=== PATIENT | female | born 1970 | race African-American/Black ===

== ENCOUNTER 2016-12-19 08:57 | Outpatient (RCR) | payer BC, OTHER ==
--- OUTSIDE RECORDS SUMMARY | 2016-10-02 11:36 | XMS REPORT | Continuity of Care Document ---
Author Author [facility] Organization [facility] Address Unknown Phone Unavailable Care Team Providers Care Addiction Specialist Name Role Phone Norma Germain PCP [phone] Source Comments Some departments are not documenting in the electronic medical record. If you do not see the information that you expected, contact Release of Information in the Health Information Management department at [phone] for further assistance in locating additional records.[facility] Active Allergies and Adverse Reactions Allergen Noted Date Severity Reactions Comments Azathioprine 07/09/2012 UNKNOWN Methotrexate 09/01/2014 SEE COMMENTS Liver emzymes Zoloft 07/07/2009 Current Medications Prescription Sig. Disp. Refills Start End Date Status Date ERGOCALCIFEROL (VITAMIN D Take 1,000 mg by mouth Active PO) Every 48 Hours. ZOLPIDEM TARTRATE (AMBIEN Take 10 mg by mouth At Active PO) Bedtime Daily. FLUTICASONE/SALMETEROL Inhale 250 mg by mouth Active (ADVAIR DISKUS IN) Twice Daily. Ascorbic Acid 1,000 mg PO Take 1 Tab by mouth Active Tab daily. Potassium 99 mg PO Tab Take 1 Tab by mouth Active daily. loratadine (CLARITIN) 10 Take 10 mg by mouth Active mg tablet daily. cyclobenzaprine Take 10 mg by mouth three Active (FLEXERIL) 10 mg tablet times daily as needed. Hydrocodone-Acetaminophen Take 1 Tab by mouth every Active 7.5-300 mg tab 12 hours. 1/2 tab twice a day doxycycline(+) Take 1 Cap by mouth twice 10 Cap 0 01/30/20 Active (VIBRAMYCIN) 100 mg daily. 15 capsule leflunomide (ARAVA) 10 mg 2 Tabs every 48 hours. 30 Tab 0 01/30/20 Active tablet 15 gabapentin (NEURONTIN) TAKE ONE AND ONE-HALF 90 Tab 2 03/12/20 Active 800 mg tablet TABLETS BY MOUTH TWICE 15 DAILY DULOXETINE HCL (CYMBALTA Take by mouth. Active PO) mycophenolate mofetil 500mg bid for 1 week, 120 Tab 1 03/31/20 Active (CELLCEPT) 500 mg tablet then 1000mg bid after 16 this. Syringe with Needle Use with methotrexate 12 Syringe 3 05/25/20 Active (Disp) (TUBERCULIN 16 SYRINGE) 1 mL 27 x 1/2" syrg methotrexate 25 mg/mL 0.4mL weekly for 2 weeks, 4 mL 2 05/25/20 Active injection 0.5mL weekly for 2 weeks, 16 then 0.6mL weekly folic acid (FOLVITE) 1 mg Take 1 Tab by mouth 90 Tab 3 05/25/20 Active tablet daily. 16 predniSONE (DELTASONE) 5 Take 1 Tab by mouth 60 Tab 1 05/25/20 Active mg tablet daily. 16 triamcinolone acetonide Apply topically to 80 g 0 08/18/20 Active (KENALOG) 0.1 % topical affected area twice 16 ointment daily. Active Problems Problem Noted Date Parotitis 05/25/2016 Elevated LFTs 05/19/2015 Polyarthralgia 01/31/2015 Therapeutic drug monitoring 11/11/2014 Dyspnea 09/01/2014 Long-term current use of steroids 09/01/2014 Obesity 09/01/2014 Knee pain 09/01/2014 Back pain 06/17/2014 Last Assessment & Plan: New onset back pain with radiation into the legs bilaterally- could be secondary to degenerative spine disease or neurosarcoidosis. MRI of the lumbar spine with and without contrast for evaluation. Hip pain 06/17/2014 Last Assessment & Plan: New hip pain- patient has history of steroid use. Plain films of both hips for evaluation. Left arm numbness 09/04/2012 Last Assessment & Plan: Stable- continue gabapentin. Spasticity 09/04/2012 Last Assessment & Plan: Continue baclofen TID PRN. Sarcoid (HCC) 07/08/2009 Overview: The patient was diagnosed with pulmonary sarcoidosis in 2006. In March 2009 she has an extramedually cervical mass which was presumed to be a sarcoid granuloma. This mass responded well to steroids. She had an allergy to Imuran and methotrexate did not work. Residual symtpoms include numbness in the left arm and spasticity in the legs. L ast Assessment & Plan: Worsened since last visit- She has had a progression of her pulmonary disease and was started back on steroids. She has also noticed a worsening of her neurological symptoms of pain in the left arm and headache. She has had new onset of low back pain and occasional bowel incontinence. 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 Will order MRI of the brain with and without contrast due to the headaches. Will order MRI of the cervical spine with and without contrast due to the worsened arm pain. She should continue gabapentin 1200mg BID. Will start her on flexeril 10 mg TID PRN for pain and cramping in the left arm. Refer to rheumatology for her sarcoidosis. 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 Most Recent Encounters Date Type Specialty Providers Description 08/31/2016 Telephone Allergy,Immunology and Max Sandhu MD Results Rheumatology 08/18/2016 [facility] Max Sandhu MD Pain in unspecified joint Encounter 08/18/2016 Office Visit Allergy,Immunology and Max Sandhu MD Polyarthralgia (Primary Rheumatology Dx); Elevated liver enzymes; Sarcoidosis (HCC); YAIMA positive; Therapeutic drug monitoring; Positive YAIMA (antinuclear antibody) 08/18/2016 Orders Only Allergy,Immunology and Max Sandhu MD Elevated liver enzymes; Rheumatology Sarcoidosis (HCC) Immunizations Name Dates Previously Given Next Due Pneumococcal 05/25/2016 Vaccine(13[facility]/immunocompromised adult) Social History Tobacco Use Types Packs/Day Years Used Date Former Smoker Quit: 09/01/1998 Smokeless Tobacco: Never Used Alcohol Use Drinks/Week oz/Week Comments No 0 Standard 0.0 drinks or equivalent Last Filed Vital Signs Vital Sign Reading Time Taken Blood Pressure 128/87 08/18/2016 10:31 AM CDT Pulse 95 08/18/2016 10:31 AM CDT Temperature 36.8 C (98.2 F) 08/18/2016 10:31 AM CDT Respiratory Rate 16 08/18/2016 10:31 AM CDT Height 1.63 m (5' 4.17") 08/18/2016 10:31 AM CDT Weight 103.239 kg (227 lb 9.6 08/18/2016 10:31 AM CDT oz) Body Mass Index 38.86 08/18/2016 10:31 AM CDT Oxygen Saturation 98% 08/18/2016 10:31 AM CDT Plan of Care Date Type Specialty Providers Description 10/11/2016 Appointment Hepatology Yeny Sandoval MD [address] [facility] [address] [place] [address] [phone] (Fax) 12/29/2016 Appointment Allergy,Immunology and Max Sandhu MD Rheumatology [address] [facility] [address] [place] [address] [phone] (Fax) Health Maintenance Due Date Last Done Comments Physical (Comprehensive) 1978 Exam Pertussis Vaccine 1982 Tetanus Vaccine 1988 Cervical Cancer Screening 1992 Influenza Vaccine 07/27/2016 Results from Last 3 Months ANGIOTENSIN CONV ENZYME (GINNY) (08/18/2016 11:45 AM) Component Value Range Angiotensin Convert 132 (H)Comment: Enzyme Reference range: 8 to 53 Unit: U/L [facility] Specimen Blood SED RATE (08/18/2016 11:45 AM) Component Value Range Sed Rate -ESR 44 (H) 0-20 MM/HR Specimen Blood COMPREHENSIVE METABOLIC PANEL (08/18/2016 11:45 AM)Only the most recent of 2 results within the time period is included. Component Value Range Sodium 136 (L) 137-147 MMOL/L Potassium 4.6 3.5-5.1 MMOL/L Chloride 98 98-110 MMOL/L Glucose 90 70-100 MG/DL Blood Urea Nitrogen 12 7-25 MG/DL Creatinine 1.00 0.4-1.00 MG/DL Calcium 10.7 (H) 8.5-10.6 MG/DL Total Protein 8.4 (H) 6.0-8.0 G/DL Total Bilirubin 0.4 0.3-1.2 MG/DL Albumin 4.2 3.5-5.0 G/DL Alk Phosphatase 656 (H) 25-110 U/L AST (SGOT) 108 (H) 7-40 U/L CO2 31 (H) 21-30 MMOL/L ALT (SGPT) 117 (H) 7-56 U/L Anion Gap 7 3-12 eGFR Non >60Comment: >60 mL/min The eGFR is not validated for use in drug dosing adjustments. Continue to use estimated creatinine clearance per dosing reference text. Please contact the Clinical Pharmacist for questions. eGFR >60Comment: >60 mL/min The eGFR is not validated for use in drug dosing adjustments. Continue to use estimated creatinine clearance per dosing reference text. Please contact the Clinical Pharmacist for questions. Specimen Blood C REACTIVE PROTEIN (CRP) (08/18/2016 11:45 AM) Component Value Range C-Reactive Protein 1.83 (H) <1.0 MG/DL Specimen Blood CBC AND DIFF (08/18/2016 11:45 AM)Only the most recent of 2 results within the time period is included. Component Value Range White Blood Cells 6.2 4.5-11.0 K/UL RBC 4.83 4.0-5.0 M/UL Hemoglobin 14.3 12.0-15.0 GM/DL Hematocrit 42.5 36-45 % MCV 88.0 80-100 FL MCH 29.5 26-34 PG MCHC 33.5 32.0-36.0 G/DL RDW 15.9 (H) 11-15 % Platelet Count 283 150-400 K/UL MPV 8.1 7-11 FL Neutrophils 73 41-77 % Lymphocytes 15 (L) 24-44 % Monocytes 8 4-12 % Eosinophils 4 0-5 % Basophils 0 0-2 % Absolute Neutrophil Count 4.60 1.8-7.0 K/UL Absolute Lymph Count 0.90 (L) 1.0-4.8 K/UL Absolute Monocyte Count 0.50 0-0.80 K/UL Absolute Eosinophil Count 0.20 0-0.45 K/UL Absolute Basophil Count 0.00 0-0.20 K/UL Specimen Blood
[2016-10-02 11:48] LABS: BASOPHILS % (AUTO) 1 % (0-10); EOSINOPHILS # (AUTO) 0.2 10^3/uL (0.0-0.3); EOSINOPHILS % (AUTO) 4 % (0-10); LYMPHOCYTES # (AUTO) 0.8 X 10^3 (1.0-4.0); LYMPHOCYTES % (AUTO) 16 % (12-44); MEAN CORPUSCULAR HEMOGLOBIN 30 PG (25-34); MEAN CORPUSCULAR HGB CONC 33 G/DL (32-36); MEAN CORPUSCULAR VOLUME 90 FL (80-99); MEAN PLATELET VOLUME 9.5 FL (7.4-10.4); MONOCYTES # (AUTO) 0.5 X 10^3 (0.0-1.0); MONOCYTES % (AUTO) 10 % (0-12); NEUTROPHILS # (AUTO) 3.5 X 10^3 (1.8-7.8); NEUTROPHILS % (AUTO) 70 % (42-75); PLATELET COUNT 294 10^3/uL (130-400); RED BLOOD COUNT 4.58 10^6/uL (4.35-5.85)
[2016-10-02 12:07] LABS: ALANINE AMINOTRANSFERASE 78 U/L (0-55); ALBUMIN 4.1 G/DL (3.2-4.5); ANION GAP 10 MMOL/L (5-14); ASPARTATE AMINO TRANSFERASE 60 U/L (5-34); BILIRUBIN,TOTAL 0.4 MG/DL (0.1-1.0); BLOOD UREA NITROGEN 13 MG/DL (7-18); BUN/CREATININE RATIO 14; CALCIUM 9.8 MG/DL (8.5-10.1); CARBON DIOXIDE 26 MMOL/L (21-32); CHLORIDE 102 MMOL/L (98-107); CREATININE SERUM 0.92 MG/DL (0.60-1.30); GFR ESTIMATED > 60; GLUCOSE 95 MG/DL (70-105); SODIUM 138 MMOL/L (135-145); TOTAL PROTEIN 7.9 G/DL (6.4-8.2)
[2016-11-23 14:41] LABS: BASOPHILS % (AUTO) 0 % (0-10); EOSINOPHILS # (AUTO) 0.2 10^3/uL (0.0-0.3); EOSINOPHILS % (AUTO) 4 % (0-10); LYMPHOCYTES # (AUTO) 0.8 X 10^3 (1.0-4.0); LYMPHOCYTES % (AUTO) 15 % (12-44); MEAN CORPUSCULAR HEMOGLOBIN 30 PG (25-34); MEAN CORPUSCULAR HGB CONC 33 G/DL (32-36); MEAN CORPUSCULAR VOLUME 91 FL (80-99); MEAN PLATELET VOLUME 9.5 FL (7.4-10.4); MONOCYTES # (AUTO) 0.4 X 10^3 (0.0-1.0); MONOCYTES % (AUTO) 8 % (0-12); NEUTROPHILS % (AUTO) 74 % (42-75); PLATELET COUNT 242 10^3/uL (130-400); RED BLOOD COUNT 4.13 10^6/uL (4.35-5.85); RED CELL DISTRIBUTION WIDTH 13.5 % (10.0-14.5); WHITE BLOOD COUNT 5.4 10^3/uL (4.3-11.0)
[2016-11-23 15:00] LABS: ALANINE AMINOTRANSFERASE 70 U/L (0-55); ALBUMIN 3.7 G/DL (3.2-4.5); ANION GAP 8 MMOL/L (5-14); ASPARTATE AMINO TRANSFERASE 63 U/L (5-34); BILIRUBIN,TOTAL 0.4 MG/DL (0.1-1.0); BLOOD UREA NITROGEN 7 MG/DL (7-18); BUN/CREATININE RATIO 9; CALCIUM 9.1 MG/DL (8.5-10.1); CARBON DIOXIDE 25 MMOL/L (21-32); CHLORIDE 103 MMOL/L (98-107); CREATININE SERUM 0.79 MG/DL (0.60-1.30); GFR ESTIMATED > 60; GLUCOSE 102 MG/DL (70-105); SODIUM 136 MMOL/L (135-145)
[2016-12-19 09:18] LABS: BASOPHILS % (AUTO) 1 % (0-10); EOSINOPHILS # (AUTO) 0.3 10^3/uL (0.0-0.3); EOSINOPHILS % (AUTO) 6 % (0-10); LYMPHOCYTES # (AUTO) 0.9 X 10^3 (1.0-4.0); LYMPHOCYTES % (AUTO) 21 % (12-44); MEAN CORPUSCULAR HEMOGLOBIN 30 PG (25-34); MEAN CORPUSCULAR HGB CONC 34 G/DL (32-36); MEAN CORPUSCULAR VOLUME 89 FL (80-99); MEAN PLATELET VOLUME 9.7 FL (7.4-10.4); MONOCYTES # (AUTO) 0.4 X 10^3 (0.0-1.0); MONOCYTES % (AUTO) 10 % (0-12); NEUTROPHILS # (AUTO) 2.6 X 10^3 (1.8-7.8); NEUTROPHILS % (AUTO) 61 % (42-75); PLATELET COUNT 269 10^3/uL (130-400); RED CELL DISTRIBUTION WIDTH 13.3 % (10.0-14.5); WHITE BLOOD COUNT 4.3 10^3/uL (4.3-11.0)
[2016-12-19 09:51] LABS: ALANINE AMINOTRANSFERASE 102 U/L (0-55); ANION GAP 11 MMOL/L (5-14); ASPARTATE AMINO TRANSFERASE 85 U/L (5-34); BILIRUBIN,TOTAL 0.3 MG/DL (0.1-1.0); BLOOD UREA NITROGEN 11 MG/DL (7-18); BUN/CREATININE RATIO 10; CALCIUM 9.9 MG/DL (8.5-10.1); CARBON DIOXIDE 24 MMOL/L (21-32); CHLORIDE 103 MMOL/L (98-107); CREATININE SERUM 1.05 MG/DL (0.60-1.30); GFR ESTIMATED > 60; GLUCOSE 110 MG/DL (70-105); SODIUM 138 MMOL/L (135-145); TOTAL PROTEIN 7.6 G/DL (6.4-8.2)
== END 2016-12-31 | disposition home or self-care (01) ==
LOC: LAB 08:57
PROVIDERS: ATTEND Internal Medicine
DX: D86.9 Sarcoidosis, unspecified (principal); M25.50 Pain in unspecified joint; R76.8 Other specified abnormal immunological findings in serum; R79.89 Other specified abnormal findings of blood chemistry
CPT/HCPCS: 36415; 80053; 85025

== ENCOUNTER → 2016-12-19 | Outpatient (CLI) | payer OTHER ==
[~2016-12-19] MED LIST: ADVAIR; ASCO-262 PO; AZAT50TA PO; CHOL10003; CITA40TA19 PO; CPR500T PO; CRUT1EAC7; CYCL10TA9 PO; DULO30CA PO; GABA-490 PO; GBPN300C; HYDR-3062 PO; HYDR-3816 PO; HYDR1TAB8 OP; LORA10CA PO; METH4TAB PO; MNTL10T; MTX2.5T PO; PHEN100T17 PO; POTA99TA7 PO; POTASSIUM; PRD10T PO; PRD20T PO; PREDNISONE; SCOOTER XX; TRAM50TA2 PO; TRIA1CAP4 PO; ZOLP10TA5 PO; potassium PO
--- OUTSIDE RECORDS SUMMARY | 2016-12-19 09:05 | XMS REPORT | Continuity of Care Document ---
Author Author [facility] Organization [facility] Address Unknown Phone Unavailable Care Team Providers Care Clinical Appeals Auditor Name Role Phone DorranceNorma jordan PCP [phone] Source Comments Some departments are not documenting in the electronic medical record. If you do not see the information that you expected, contact Release of Information in the Health Information Management department at [phone] for further assistance in locating additional records.[facility] Active Allergies and Adverse Reactions Allergen Noted Date Severity Reactions Comments Azathioprine 07/09/2012 UNKNOWN Zoloft 07/07/2009 Current Medications Prescription Sig. Disp. [...] 12 hours. 1/2 tab twice a day gabapentin (NEURONTIN) TAKE ONE AND ONE-HALF 90 Tab 2 03/12/20 Active 800 mg tablet TABLETS BY MOUTH TWICE 15 DAILY DULOXETINE HCL (CYMBALTA Take by mouth. Active PO) Syringe with Needle Use with methotrexate 12 Syringe 3 05/25/20 Active (Disp) (TUBERCULIN 16 SYRINGE) 1 mL 27 x 1/2" syrg folic acid (FOLVITE) 1 mg Take 1 Tab by mouth 90 Tab 3 05/25/20 Active tablet daily. 16 triamcinolone acetonide Apply topically to 80 g 0 08/18/20 Active (KENALOG) 0.1 % topical affected area twice 16 ointment daily. baclofen (LIORESAL) 10 mg Take 10 mg by mouth three Active tablet times weekly. prednisone (DELTASONE) 5 Take 1 Tab by mouth 60 Tab 1 11/22/20 Active mg tablet daily. 16 methotrexate 25 mg/mL Inject 0.7 mL under the 4 mL 2 12/05/19 Active injection skin every 7 days. 17 methotrexate 25 mg/mL 0.4mL weekly for 2 weeks, 4 mL 2 05/25/2009/14 Discontin injection 0.5mL weekly for 2 weeks, 16 17 ued then 0.6mL weekly predniSONE (DELTASONE) 5 Take 1 Tab by mouth 60 Tab 1 05/25/2011/22 Discontin mg tablet daily. 16 16 ued Active Problems Problem Noted Date Parotitis 05/25/2016 [...] Recent Encounters Date Type Specialty Providers Description 12/01/2016 Orders Only Allergy,Immunology and Max Sandhu MD Polyarthralgia; Elevated Rheumatology liver enzymes; Sarcoidosis (HCC); YAIMA positive; Therapeutic drug monitoring; Positive YAIMA (antinuclear antibody); Elevated LFTs 12/01/2016 Orders Only Allergy,Immunology and Max Sandhu MD Rheumatology 2016 Telephone Allergy,Immunology and Max Sandhu MD Medication Refill; Rheumatology Fatigue 10/27/2016 Telephone Hepatology Yarelis Ribeiro RN Results 10/24/2016 Telephone Hepatology Melchor Vanegas MD Results 10/18/2016 Telephone Hepatology Yeny Sandoval MD Results - Liver Bx Results 10/17/2016 Telephone Hepatology Yeny Sandoval MD Other - voice mail 10/16/2016 [facility] Radiology Yeny Sandoval MD Encounter Gaby Lees MD 10/11/2016 [facility] Yeny Sandoval MD Sarcoidosis, unspecified Encounter (HCC) 10/11/2016 Office Visit Hepatology Yeny Sandoval MD Sarcoid (HCC) ( Primary Dx); Elevated LFTs 10/09/2016 Telephone Hepatology Yeny Sandoval MD Patient Reminder Call 10/04/2016 Telephone Hepatology Yeny Sandoval MD Patient Reminder Call - Appointment reminder with Hepatology Immunizations Name Dates Previously Given Next Due Pneumococcal 05/25/2016 Vaccine(13-[facility]/immunocompromised adult) Social History Tobacco Use Types Packs/Day Years Used Date Former Smoker Quit: 09/01/1998 Smokeless Tobacco: Never Used Alcohol Use Drinks/Week oz/Week Comments No 0 Standard 0.0 drinks or equivalent Last Filed Vital Signs Vital Sign Reading Time Taken Blood Pressure 118/91 10/16/2016 3:30 PM SUBMARINE ELEMENT COORDINATOR Pulse 91 10/16/2016 3:30 PM SUBMARINE ELEMENT COORDINATOR Temperature 36.9 C (98.5 F) 10/16/2016 2:00 PM SUBMARINE ELEMENT COORDINATOR Respiratory Rate 12 10/11/2016 10:29 AM SUBMARINE ELEMENT COORDINATOR Height 1.651 m (5' 5") 10/16/2016 12:57 PM SUBMARINE ELEMENT COORDINATOR Weight 110.678 kg (244 lb) 10/16/2016 12:57 PM SUBMARINE ELEMENT COORDINATOR Body Mass Index 40.6 10/16/2016 12:57 PM SUBMARINE ELEMENT COORDINATOR Oxygen Saturation 100% 10/16/2016 3:30 PM SUBMARINE ELEMENT COORDINATOR Plan of Care Date Type Specialty Providers Description 12/29/2016 Appointment Allergy,Immunology and Max Sandhu MD Rheumatology [address] [facility] [address] [place] [address] [phone] (Fax) 05/02/2017 Appointment Hepatology Yeny Sandoval MD [address] [facility] [address] [place] [address] [phone] (Fax) Health Maintenance Due Date Last Done Comments Physical (Comprehensive) 1978 Exam Pertussis Vaccine 1982 Tetanus Vaccine 1988 Cervical Cancer Screening 1992 Breast Cancer Screening 2011 Influenza Vaccine 07/27/2016 Procedures from Last 3 Months Procedure Name Priority Date/Time Associated Diagnosis Comments PROCEDURES-SCAN 10/18/2016 Results for this 1:16 PM SUBMARINE ELEMENT COORDINATOR procedure are in the results section. Results from Last 3 Months COMPREHENSIVE METABOLIC PANEL (11/23/2016)Only the most recent of 2 results within the time period is included. Specimen Blood CBC AND DIFF (11/23/2016)Only the most recent of 2 results within the time period is included. Specimen Blood PROCEDURES-SCAN (10/18/2016 1:16 PM) Narrative Ordered by an unspecified provider. SURGICAL PATHOLOGY (10/16/2016 3:22 PM) Component Value Range PATHOLOGY REPORT [email or web address] Yue Pena MD, PhD, Director of Anatomic Pathology Department of Pathology and Laboratory Medicine [address] [facility], [place] [address] Surgical Pathology Office: [phone] SURGICAL PATHOLOGY REPORT NAME: ARABELLA HARRY SURG PATH #: [id number] MR #: [id number] SPECIMEN CLASS: SR BILLING #: [id number] ALT ID #: LOCATION: [facility] DATE OF PROCEDURE: 10/16/2016 AGE: 45 SEX: F DATE RECEIVED: 10/16/2016 : 1970 TIME RECEIVED: 15:22 PHYSICIAN: GABY LEES DATE OF REPORT: 10/23/2016 COPY TO: DATE OF PRINTIN10/23/2016 ################################################## ###################### Final Diagnosis: A. [place] liver core biopsy: Non-caseating granulomas consistent with sarcoidosis. Changes consistent with methotrexate toxicity (including portal and intralobular focal lymphocytic infiltrates, with focal portal tract expansion, mild portal and focal periportal pericellular fibrosis 3A out of 4, focal steatosis (5%) ). See comment. Comment: The specimen consists of three cores, each measuring approximately 1.5 cm in length. There are 36 portal tracts, and 6-7 of these contain non-caseating granulomas consistent with sarcoidosis. A few small granulomas are found in the lobules as well. There is also some increased fibrosis in the expanded portal tracts with extension in the periportal lobules in form of pericellular fibrosis. There is a single fibrous bridge between two portal tracts. Several portal tracts contain also infiltrates of lymphocytes expanding them. There is some chronic bile duct injury, with dilatation of ducts and flattening of the epithelium. Foci of lymphocytic inflammation are seen in the lobules as well. The hepatocytes show nuclear variation, and 5% of hepatocytes show steatosis. In summary, this liver shows foci of prominent granulomatous inflammation, consistent with the clinical diagnosis of sarcoidosis. Portal fibrosis focally expanding into the periportal parts of the lobules fibrosis are most likely related to methotrexate toxicity, graded as 3A out of 4. Other findings supporting the methotrexate effect are portal and lobular inflammatory infiltrates combined with nuclear changes in hepatocytes and focal steatosis. If methotrexate treatment is continued a rebiopsy after 6 months is recommended (Familia: Biopsy interpretation of the liver, Daniel Kluwrejoycelyn,2015) In view of the bile duct injury and the presence of granulomas it would seem prudent to include in the work-up of the patient some additional serologic tests to exclude primary biliary cirrhosis. These biopsy findings were discussed with Dr. Yeny Sandoval on October 23, 2016. Attestation: By this signature, I attest that I have personally formulated the final interpretation expressed in this report and that the above diagnosis is based upon my examination of the slides and/or other material indicated in this report. +++Electronically Signed Out By+++ juanito/10/16/2016 Interpreted by: Raymond Martínez MD, Attending Physician Sreedhar Aaron D.O. 10/23/2016 ################################################## ###################### Material Received: A: [place] Liver (all stains) History: 45-year-old female with history of sarcoidosis of lung, diabetes mellitus, carpal tunnel syndrome, depression, cervical spine mass Microscopic Description: Special stains: Trichrome shows mild fibrosis in the expanded portal tracts, focally extending into the lobules in a pericellular manner. PAS is noncontributory. PAS with diastase shows groups of PAS positive diastase resistant granular macrophages in the portal tracts. Iron stain is negative. Reticulin stain corresponds to the trichrome stain. Gross Description: A. Received in formalin labeled "liver biopsy" is a 1.9 x 0.3 x 0.2 cm aggregate of cylindrical, pale bautista, soft tissue fragments. The specimen is entirely submitted in cassette A1. (ads) [facility]/10/16/2016 Sreedhar Aaron D.O. IR LIVER BIOPSY (10/16/2016 1:48 PM) Impressions Successful ultrasound guided liver biopsy. Finalized by Gaby Lees M.D. on 10/17/2016 2:35 PM. Dictated by Gaby Lees M.D. on 10/17/2016 2:34 PM. Narrative Ultrasound-guided liver biopsy: History: Sarcoidosis Technique and Findings: After explaining the risks and benefits in great detail, informed consent was obtained. A preliminary ultrasound was performed. The skin site overlying the right hepatic lobe was marked. The region was cleaned and draped in usual sterile fashion. 1% lidocaine was utilized as a local anesthetic. A 17-gauge Temno introducer needle was advanced and the skin into the right lobe hepatic parenchyma under ultrasound guidance. In a coaxial fashion an 18-gauge Temno core needle was advanced into the hepatic parenchyma. A hard copy image was recorded of the needle in proper position. A series of 2 cm cores of the liver were obtained. The tissue was placed in formalin immediately and sent to pathology for analysis. Upon withdrawing the introducer needle, a slurry of Gelfoam was applied and hemostasis was achieved. Patient tolerated the procedure well. Postbiopsy ultrasound demonstrated no significant hematoma. Sedation: 3 mg of IV Versed and 50 micrograms of IV fentanyl was administered for sedation. Procedure Note Interface, Radiant Results - Tue Oct 17, 2016 3:30 PM SUBMARINE ELEMENT COORDINATOR Ultrasound-guided liver biopsy: History: Sarcoidosis Technique and Findings: After explaining the risks and benefits in great detail, informed consent was obtained. A preliminary ultrasound was performed. The skin site overlying the right hepatic lobe was marked. The region was cleaned and draped in usual sterile fashion. 1% lidocaine was utilized as a local anesthetic. A 17-gauge Temno introducer needle was advanced and the skin into the right lobe hepatic parenchyma under ultrasound guidance. In a coaxial fashion an 18-gauge Temno core needle was advanced into the hepatic parenchyma. A hard copy image was recorded of the needle in proper position. A series of 2 cm cores of the liver were obtained. The tissue was placed in formalin immediately and sent to pathology for analysis. Upon withdrawing the introducer needle, a slurry of Gelfoam was applied and hemostasis was achieved. Patient tolerated the procedure well. Postbiopsy ultrasound demonstrated no significant hematoma. Sedation: 3 mg of IV Versed and 50 micrograms of IV fentanyl was administered for sedation. IMPRESSION Successful ultrasound guided liver biopsy. Finalized by Gaby Lees M.D. on 10/17/2016 2:35 PM. Dictated by Gaby Lees M.D. on 10/17/2016 2:34 PM. CREATINE KINASE-CPK (10/11/2016 11:16 AM) Component Value Range Creatine Kinase 162 21-215 U/L Specimen Blood
== END ==
LOC: LAB 09:01
PROVIDERS: ATTEND Internal Medicine
DX: Z51.81 Encounter for therapeutic drug level monitoring (principal); Z79.899 Other long term (current) drug therapy
CPT/HCPCS: 36415; 82164

== ENCOUNTER 2017-03-30 10:57 | Outpatient (RCR) | payer OTHER ==
[2017-01-24 11:13] LABS: BASOPHILS % (AUTO) 1 % (0-10); EOSINOPHILS # (AUTO) 0.2 10^3/uL (0.0-0.3); EOSINOPHILS % (AUTO) 6 % (0-10); LYMPHOCYTES # (AUTO) 1.1 X 10^3 (1.0-4.0); LYMPHOCYTES % (AUTO) 26 % (12-44); MEAN CORPUSCULAR HEMOGLOBIN 29 PG (25-34); MEAN CORPUSCULAR HGB CONC 34 G/DL (32-36); MEAN CORPUSCULAR VOLUME 87 FL (80-99); MEAN PLATELET VOLUME 9.9 FL (7.4-10.4); MONOCYTES # (AUTO) 0.6 X 10^3 (0.0-1.0); MONOCYTES % (AUTO) 14 % (0-12); NEUTROPHILS # (AUTO) 2.2 X 10^3 (1.8-7.8); NEUTROPHILS % (AUTO) 54 % (42-75); PLATELET COUNT 257 10^3/uL (130-400); RED CELL DISTRIBUTION WIDTH 13.7 % (10.0-14.5); WHITE BLOOD COUNT 4.1 10^3/uL (4.3-11.0)
[2017-01-24 11:42] LABS: ALANINE AMINOTRANSFERASE 60 U/L (0-55); ANION GAP 12 MMOL/L (5-14); ASPARTATE AMINO TRANSFERASE 62 U/L (5-34); BILIRUBIN,TOTAL 0.5 MG/DL (0.1-1.0); BLOOD UREA NITROGEN 10 MG/DL (7-18); BUN/CREATININE RATIO 12; CALCIUM 9.8 MG/DL (8.5-10.1); CARBON DIOXIDE 21 MMOL/L (21-32); CHLORIDE 104 MMOL/L (98-107); CREATININE SERUM 0.85 MG/DL (0.60-1.30); GFR ESTIMATED > 60; GLUCOSE 101 MG/DL (70-105); POTASSIUM 4.2 MMOL/L (3.6-5.0); SODIUM 137 MMOL/L (135-145); TOTAL PROTEIN 7.4 G/DL (6.4-8.2)
--- OUTSIDE RECORDS SUMMARY | 2017-01-26 23:13 | XMS REPORT | Continuity of Care Document ---
Author Author [facility] Organization [facility] Address Unknown Phone Unavailable Care Team Providers Care Pond Tender Name Role Phone QuincyNorma jordan PCP [phone] Source Comments Some departments are not documenting in the electronic medical record. If you do not see the information that you expected, contact Release of Information in the Health Information Management department at [phone] for further assistance in locating additional records.[facility] Active Allergies and Adverse Reactions Allergen [...] Active injection skin every 7 days. 17 Active Problems Problem Noted Date Parotitis 05/25/2016 [...] & Plan: Continue baclofen TID PRN. Sarcoid ([facility]) 07/08/2009 Overview: The patient was diagnosed with [...] Recent Encounters Date Type Specialty Providers Description 12/29/2016 Office Visit Allergy,Immunology and Max Sandhu MD Polyarthralgia (Primary Rheumatology Dx); Sarcoidosis (HCC); Elevated liver enzymes; Therapeutic drug monitoring; Elevated LFTs; Parotitis 12/01/2016 Orders Only Allergy,Immunology and Max Sandhu MD Polyarthralgia; Elevated Rheumatology liver enzymes; Sarcoidosis (HCC); YAIMA positive; Therapeutic drug monitoring; Positive YAIMA (antinuclear antibody); Elevated LFTs 12/01/2016 Orders Only Allergy,Immunology and Max Sandhu MD Rheumatology 2016 Telephone Allergy,Immunology and Max Sandhu MD Medication Refill; Rheumatology Fatigue Immunizations Name Dates Previously Given Next Due Pneumococcal 05/25/2016 Vaccine(13-[facility]/immunocompromised adult) Social History Tobacco Use Types Packs/Day Years Used Date Former Smoker Quit: 09/01/1998 Smokeless Tobacco: Never Used Alcohol Use Drinks/Week oz/Week Comments No 0 Standard 0.0 drinks or equivalent Last Filed Vital Signs Vital Sign Reading Time Taken Blood Pressure 116/78 12/29/2016 10:17 AM ENAMEL DRIER Pulse 90 12/29/2016 10:17 AM ENAMEL DRIER Temperature 36.8 C (98.2 F) 12/29/2016 10:17 AM ENAMEL DRIER Respiratory Rate 16 12/29/2016 10:17 AM ENAMEL DRIER Height 1.651 m (5' 5") 12/29/2016 10:17 AM ENAMEL DRIER Weight 118.207 kg (260 lb 9.6 12/29/2016 10:17 AM ENAMEL DRIER oz) Body Mass Index 43.37 12/29/2016 10:17 AM ENAMEL DRIER Oxygen Saturation 100% 10/16/2016 3:30 PM ENAMEL DRIER Plan of Care Date Type Specialty Providers Description 05/02/2017 Appointment Hepatology Yeny Sandoval MD [address] [facility] [address] [place] [address] [phone] (Fax) Health Maintenance Due Date Last Done Comments Physical (Comprehensive) 1978 Exam Pertussis Vaccine 1982 Tetanus Vaccine 1988 Cervical Cancer Screening 1992 Breast Cancer Screening 2011 Influenza Vaccine 07/27/2017 Results from Last 3 Months COMPREHENSIVE METABOLIC PANEL (11/23/2016) Specimen Blood CBC AND DIFF (11/23/2016) Specimen Blood
[2017-03-30 11:06] LABS: BASOPHILS % (AUTO) 0 % (0-10); EOSINOPHILS # (AUTO) 0.2 10^3/uL (0.0-0.3); EOSINOPHILS % (AUTO) 4 % (0-10); LYMPHOCYTES # (AUTO) 0.9 X 10^3 (1.0-4.0); LYMPHOCYTES % (AUTO) 20 % (12-44); MEAN CORPUSCULAR HEMOGLOBIN 29 PG (25-34); MEAN CORPUSCULAR HGB CONC 33 G/DL (32-36); MEAN CORPUSCULAR VOLUME 88 FL (80-99); MEAN PLATELET VOLUME 9.5 FL (7.4-10.4); MONOCYTES # (AUTO) 0.4 X 10^3 (0.0-1.0); MONOCYTES % (AUTO) 8 % (0-12); NEUTROPHILS % (AUTO) 67 % (42-75); PLATELET COUNT 271 10^3/uL (130-400); RED BLOOD COUNT 4.67 10^6/uL (4.35-5.85); RED CELL DISTRIBUTION WIDTH 13.9 % (10.0-14.5); WHITE BLOOD COUNT 4.5 10^3/uL (4.3-11.0)
[2017-03-30 11:23] LABS: ALANINE AMINOTRANSFERASE 61 U/L (0-55); ALBUMIN 4.1 G/DL (3.2-4.5); ANION GAP 9 MMOL/L (5-14); ASPARTATE AMINO TRANSFERASE 43 U/L (5-34); BILIRUBIN,TOTAL 0.6 MG/DL (0.1-1.0); BLOOD UREA NITROGEN 9 MG/DL (7-18); BUN/CREATININE RATIO 11; CALCIUM 9.5 MG/DL (8.5-10.1); CARBON DIOXIDE 24 MMOL/L (21-32); CHLORIDE 105 MMOL/L (98-107); CREATININE SERUM 0.82 MG/DL (0.60-1.30); GFR ESTIMATED > 60; GLUCOSE 106 MG/DL (70-105); POTASSIUM 4.1 MMOL/L (3.6-5.0); SODIUM 138 MMOL/L (135-145); TOTAL PROTEIN 7.4 G/DL (6.4-8.2)
== END 2017-04-24 | disposition home or self-care (01) ==
LOC: LAB 10:57
PROVIDERS: ATTEND Internal Medicine
DX: D86.9 Sarcoidosis, unspecified (principal); M25.50 Pain in unspecified joint; R76.8 Other specified abnormal immunological findings in serum; R79.89 Other specified abnormal findings of blood chemistry
CPT/HCPCS: 36415; 80053; 85025

== ENCOUNTER 2017-06-22 10:42 | Outpatient (RCR) | payer OTHER ==
[2017-04-27 11:00] LABS: BASOPHILS % (AUTO) 1 % (0-10); EOSINOPHILS # (AUTO) 0.2 10^3/uL (0.0-0.3); EOSINOPHILS % (AUTO) 5 % (0-10); LYMPHOCYTES # (AUTO) 1.7 X 10^3 (1.0-4.0); LYMPHOCYTES % (AUTO) 32 % (12-44); MEAN CORPUSCULAR HEMOGLOBIN 29 PG (25-34); MEAN CORPUSCULAR HGB CONC 33 G/DL (32-36); MEAN CORPUSCULAR VOLUME 89 FL (80-99); MEAN PLATELET VOLUME 9.9 FL (7.4-10.4); MONOCYTES # (AUTO) 0.6 X 10^3 (0.0-1.0); MONOCYTES % (AUTO) 10 % (0-12); NEUTROPHILS # (AUTO) 2.8 X 10^3 (1.8-7.8); NEUTROPHILS % (AUTO) 53 % (42-75); PLATELET COUNT 287 10^3/uL (130-400); RED BLOOD COUNT 4.74 10^6/uL (4.35-5.85); WHITE BLOOD COUNT 5.3 10^3/uL (4.3-11.0)
[2017-04-27 11:22] LABS: ALANINE AMINOTRANSFERASE 94 U/L (0-55); ANION GAP 12 MMOL/L (5-14); ASPARTATE AMINO TRANSFERASE 72 U/L (5-34); BILIRUBIN,TOTAL 0.7 MG/DL (0.1-1.0); BLOOD UREA NITROGEN 6 MG/DL (7-18); BUN/CREATININE RATIO 8; CARBON DIOXIDE 24 MMOL/L (21-32); CHLORIDE 103 MMOL/L (98-107); GFR ESTIMATED > 60; GLUCOSE 116 MG/DL (70-105); POTASSIUM 3.8 MMOL/L (3.6-5.0); SODIUM 139 MMOL/L (135-145); TOTAL PROTEIN 7.9 G/DL (6.4-8.2)
[2017-06-22 10:54] LABS: BASOPHILS % (AUTO) 1 % (0-10); EOSINOPHILS # (AUTO) 0.2 10^3/uL (0.0-0.3); EOSINOPHILS % (AUTO) 5 % (0-10); LYMPHOCYTES # (AUTO) 0.9 X 10^3 (1.0-4.0); LYMPHOCYTES % (AUTO) 28 % (12-44); MEAN CORPUSCULAR HEMOGLOBIN 29 PG (25-34); MEAN CORPUSCULAR HGB CONC 33 G/DL (32-36); MEAN CORPUSCULAR VOLUME 90 FL (80-99); MEAN PLATELET VOLUME 9.5 FL (7.4-10.4); MONOCYTES # (AUTO) 0.4 X 10^3 (0.0-1.0); MONOCYTES % (AUTO) 12 % (0-12); NEUTROPHILS # (AUTO) 1.8 X 10^3 (1.8-7.8); NEUTROPHILS % (AUTO) 54 % (42-75); PLATELET COUNT 237 10^3/uL (130-400); RED BLOOD COUNT 4.42 10^6/uL (4.35-5.85); RED CELL DISTRIBUTION WIDTH 14.1 % (10.0-14.5); WHITE BLOOD COUNT 3.3 10^3/uL (4.3-11.0)
[2017-06-22 11:17] LABS: ALANINE AMINOTRANSFERASE 59 U/L (0-55); ALBUMIN 3.6 GM/DL (3.2-4.5); ANION GAP 9 MMOL/L (5-14); ASPARTATE AMINO TRANSFERASE 46 U/L (5-34); BILIRUBIN,TOTAL 0.6 MG/DL (0.1-1.0); BLOOD UREA NITROGEN 7 MG/DL (7-18); BUN/CREATININE RATIO 9; CALCIUM 9.1 MG/DL (8.5-10.1); CARBON DIOXIDE 25 MMOL/L (21-32); CHLORIDE 105 MMOL/L (98-107); CREATININE SERUM 0.75 MG/DL (0.60-1.30); GFR ESTIMATED > 60; GLUCOSE 101 MG/DL (70-105); POTASSIUM 3.5 MMOL/L (3.6-5.0); SODIUM 139 MMOL/L (135-145)
== END 2017-07-26 | disposition home or self-care (01) ==
LOC: LAB 10:42
PROVIDERS: ATTEND Internal Medicine
DX: D86.9 Sarcoidosis, unspecified (principal); M25.50 Pain in unspecified joint; R76.8 Other specified abnormal immunological findings in serum; R79.89 Other specified abnormal findings of blood chemistry
CPT/HCPCS: 36415; 80053; 85025

== ENCOUNTER 2017-07-30 15:45 | Observation (INO) | payer OTHER ==
[2017-07-30] VITALS (8 sets, daily range): BP systolic 113–144; BP diastolic 68–93
[~2017-07-30] VITALS: Ht 165.1 cm; Wt 118.1 kg
[~2017-07-30 15:45] MED LIST changes: -CHOL10003; +CHOL10003 PO
[2017-07-30] MEDS ORDERED: ANTACID SUSP 30 ML UDC (MYLANTA) PO ONE (16:15)
[2017-07-30] MEDS ORDERED: ASPIRIN 81 MG CHEW (CHILDREN'S ASA) PO ONE (16:15)
[2017-07-30] MEDS ORDERED: LIDOCAINE 2% VISCOUS 15 ML UDC PO ONE (16:15)
[2017-07-30 16:49] LABS: BASOPHILS % (AUTO) 0 % (0-10); EOSINOPHILS # (AUTO) 0.1 10^3/uL (0.0-0.3); EOSINOPHILS % (AUTO) 1 % (0-10); LYMPHOCYTES # (AUTO) 0.6 X 10^3 (1.0-4.0); LYMPHOCYTES % (AUTO) 9 % (12-44); MEAN CORPUSCULAR HEMOGLOBIN 29 PG (25-34); MEAN CORPUSCULAR HGB CONC 33 G/DL (32-36); MEAN CORPUSCULAR VOLUME 89 FL (80-99); MEAN PLATELET VOLUME 10.2 FL (7.4-10.4); MONOCYTES # (AUTO) 0.2 X 10^3 (0.0-1.0); MONOCYTES % (AUTO) 3 % (0-12); NEUTROPHILS # (AUTO) 5.7 X 10^3 (1.8-7.8); NEUTROPHILS % (AUTO) 87 % (42-75); PLATELET COUNT 282 10^3/uL (130-400); RED BLOOD COUNT 4.89 10^6/uL (4.35-5.85); RED CELL DISTRIBUTION WIDTH 13.6 % (10.0-14.5); WHITE BLOOD COUNT 6.5 10^3/uL (4.3-11.0)
[2017-07-30 16:59] LABS: INR 0.9 (0.8-1.4); PROTHROMBIN TIME PATIENT 12.7 SEC (12.2-14.7)
[2017-07-30 17:11] LABS: ALANINE AMINOTRANSFERASE 69 U/L (0-55); ALBUMIN 4.2 GM/DL (3.2-4.5); AMYLASE 98 U/L (25-125); ANION GAP 13 MMOL/L (5-14); ASPARTATE AMINO TRANSFERASE 52 U/L (5-34); BILIRUBIN,TOTAL 0.4 MG/DL (0.1-1.0); BLOOD UREA NITROGEN 8 MG/DL (7-18); BUN/CREATININE RATIO 9; CALCIUM 10.1 MG/DL (8.5-10.1); CARBON DIOXIDE 22 MMOL/L (21-32); CHLORIDE 105 MMOL/L (98-107); CREATININE SERUM 0.85 MG/DL (0.60-1.30); GFR ESTIMATED > 60; GLUCOSE 149 MG/DL (70-105); LIPASE 90 U/L (8-78); POTASSIUM 4.2 MMOL/L (3.6-5.0); SODIUM 140 MMOL/L (135-145); TOTAL PROTEIN 8.2 GM/DL (6.4-8.2)
[2017-07-30 17:17] LABS: MYOGLOBIN SERUM 131.1 NG/ML (10.0-92.0)
[2017-07-30 17:18] LABS: LYMPHOCYTES % (MANUAL) 13 %; NEUTROPHILS % (MANUAL) 83 %
--- NOTE | 2017-07-30 17:23 | ED Chest Pain ---
General Chief Complaint: Dizziness/Syncope Stated Complaint: DIZZINESS Nursing Triage Note: c/o dizziness with a floating sensation. Increased belching and chest discomfort. Onset yesterday. Nursing Sepsis Screen: No Definite Risk Source: patient Exam Limitations: no limitations History of Present Illness Time seen by provider: 17:00 Initial Comments Here with a variety of vague complaints including central chest pain, left arm pain, left leg pain, dizziness, floating sensation and just not feeling well. Has history of sarcoidosis and is currently and has been chronically on steroids for this. She is also on methotrexate. States the pain and feeling is different than her typical sarcoid flare although she is not sure what to attribute that to. Also complains of left frontal headache. Denies vomiting or sweating. Denies diarrhea. Reports taking her meds as directed. Timing/Duration: 24 hours Severity/Quality: moderate Location: central Prior CP/Workup: echocardiography Modifying Factors: worse with exercise, improves with rest ASA po POSTDOCTORAL SCHOLAR: No NTG SL POSTDOCTORAL SCHOLAR: No Associated Symptoms: No abdominal pain, No back pain, No diaphoresis, dizziness , No fever/chills, No nausea/vomiting, No shortness of breath, No syncope, weakness Allergies and Home Medications Allergies Coded Allergies: sertraline (Unverified Allergy, Mild, 05/27/09) Home Medications Ascorbate Calcium 500 Mg Tablet, 500 MG PO DAILY, (Reported) Cholecalciferol 1,000 Unit Tablet, (Reported) Citalopram Hydrobromide 40 Mg Tablet, Unknown Dose PO, (Reported) Cyclobenzaprine Hcl 10 Mg Tablet, 1 EACH PO DAILY, (Reported) Duloxetine Hcl 30 Mg Capsule.dr, 1 EACH PO DAILY, (Reported) Gabapentin 400 Mg Capsule, Unknown Dose PO, (Reported) Hydrocodone/Acetaminophen 1 Each Tablet, 1-2 EA PO Q4H PRN for PAIN, #60 Ref 0 Prescribed by: ANDREINA HARRY on 11/30/15 0513 Loratadine 10 Mg Capsule, 10 MG PO DAILY, (Reported) Methylprednisolone 4 Mg Tab.ds.pk, 4 MG PO UD, #1 Prescribed by: AYUSH AGUILAR on 04/02/16 1659 Prednisone 20 Mg Tab, 20 MG PO UD, #10 Prescribed by: KEV THOMPSON on 11/28/15 1253 Zolpidem Tartrate 10 Mg Tablet, 10 MG PO NEEDED, (Reported) [Advair] , (Reported) [potassium ] , 100 MG PO, #1 (Reported) Review of Systems Constitutional: see HPI, No chills, No fever, weakness (generalized) EENTM: No Symptoms Reported Respiratory: No Symptoms Reported Cardiovascular: See HPI, Chest Pain, Denies Edema, Denies Irregular Heart Rate , Lightheadedness Gastrointestinal: Denies Abdominal Pain, Denies Diarrhea, Denies Nausea, Denies Vomiting Genitourinary: No Symptoms Reported Musculoskeletal: no symptoms reported Skin: no symptoms reported Psychiatric/Neurological: See HPI, Numbness (historically to the left hand), Paresthesia (left hand), Weakness (somewhat global) Endocrine: No Symptoms Reported All Other Systems Reviewed Negative Unless Noted: Yes Past Qalgybt-Xozqvn-Hetuwb Hx Patient Social History Alcohol Use: Denies Use Recreational Drug Use: No (PAST HX--"CLEAN 7 YRS") Smoking Status: Unknown if Ever Smoked Recent Foreign Travel: No Contact w/Someone Who Travel: No Recent Infectious Disease Expo: No Recent Hopitalizations: Yes (CHILD AND TUBAL) Immunizations Up To Date Tetanus Booster (TDap): Less than 5yrs Date of Pneumonia Vaccine: Aug 26, 2015 Date of Influenza Vaccine: Aug 26, 2015 Surgeries History of Surgeries: Yes (lithotripsy, lung biopsy, CHOLEY, ORIF RIGHT ANKLE) Surgeries: Gallbladder, Tubal Ligation Respiratory History of Respiratory Disorde: Yes (SARCOIDOSIS) Currently Using CPAP: Yes (AT HS) Cardiovascular History of Cardiac Disorders: No Neurological History of Neurological Disord: No Reproductive System Hx Reproductive Disorders: No Sexually Transmitted Disease: No Genitourinary Genitourinary Disorders: Kidney Stones Gastrointestinal History of Gastrointestinal Di: No Musculoskeletal History of Musculoskeletal Dis: Yes (11/29/15 ORIF RIGHT ANKLE) Musculoskeletal Disorders: Fractures Endocrine History of Endocrine Disorders: No Cancer History of Cancer: No Psychosocial History of Psychiatric Problem: Yes (ON CYMBALTA TO HELP WITH SIDE EFFECTS OF PREDNISONE) Behavioral Health Disorders: Depression Integumentary History of Skin or Integumenta: No Blood Transfusions History of Blood Disorders: No Reviewed Nursing Assessment Reviewed/Agree w Nursing PMH: Yes Family Medical History Significant Family History: No Pertinent Family Hx Family Medial History: Myocardial infarction 19 FATHER Physical Exam Vital Signs Vital Sign - Last 12Hours 07/30/17 16:05 Temp 97.2 Pulse 76 Resp 18 B/P (MAP) 136/115 Pulse Ox 98 O2 Delivery Room Air Capillary Refill : Less Than 3 Seconds General Appearance: No Apparent Distress, WD/WN HEENT: PERRL/EOMI, Pharynx Normal Neck: Non Tender, Supple Respiratory: Lungs Clear, Normal Breath Sounds Cardiovascular: Regular Rate, Rhythm, No Murmur Gastrointestinal: Non Tender, Soft Extremity: Normal Range of Motion, Non Tender Neurologic/Psychiatric: Alert, Oriented x3 Skin: Normal Color, Warm/Dry Progress/Results/Core Measures Results/Orders Lab Results Laboratory Tests Test 07/30/17 16:40 Range/Units White Blood Count 6.5 4.3-11.0 10^3/uL Red Blood Count 4.89 4.35-5.85 10^6/uL Hemoglobin 14.2 11.5-16.0 G/DL Hematocrit 44 35-52 % Mean Corpuscular Volume 89 80-99 FL Mean Corpuscular Hemoglobin 29 25-34 PG Mean Corpuscular Hemoglobin Concent 33 32-36 G/DL Red Cell Distribution Width 13.6 10.0-14.5 % Platelet Count 282 130-400 10^3/uL Mean Platelet Volume 10.2 7.4-10.4 FL Neutrophils (%) (Auto) 87 H 42-75 % Lymphocytes (%) (Auto) 9 L 12-44 % Monocytes (%) (Auto) 3 0-12 % Eosinophils (%) (Auto) 1 0-10 % Basophils (%) (Auto) 0 0-10 % Neutrophils # (Auto) 5.7 1.8-7.8 X 10^3 Lymphocytes # (Auto) 0.6 L 1.0-4.0 X 10^3 Monocytes # (Auto) 0.2 0.0-1.0 X 10^3 Eosinophils # (Auto) 0.1 0.0-0.3 10^3/uL Basophils # (Auto) 0.0 0.0-0.1 10^3/uL Neutrophils % (Manual) 83 % Lymphocytes % (Manual) 13 % Monocytes % (Manual) 4 % Blood Morphology Comment NORMAL Prothrombin Time 12.7 12.2-14.7 SEC INR Comment 0.9 0.8-1.4 Activated Partial Thromboplast Time 35 24-35 SEC D-Dimer < 0.27 0.00-0.49 UG/ML Sodium Level 140 135-145 MMOL/L Potassium Level 4.2 3.6-5.0 MMOL/L Chloride Level 105 98-107 MMOL/L Carbon Dioxide Level 22 21-32 MMOL/L Anion Gap 13 5-14 MMOL/L Blood Urea Nitrogen 8 7-18 MG/DL Creatinine 0.85 0.60-1.30 MG/DL Estimat Glomerular Filtration Rate > 60 BUN/Creatinine Ratio 9 Glucose Level 149 H 70-105 MG/DL Calcium Level 10.1 8.5-10.1 MG/DL Magnesium Level 2.0 1.8-2.4 MG/DL Total Bilirubin 0.4 0.1-1.0 MG/DL Aspartate Amino Transf (AST/SGOT) 52 H 5-34 U/L Alanine Aminotransferase (ALT/SGPT) 69 H 0-55 U/L Alkaline Phosphatase 312 H 40-136 U/L Myoglobin 131.1 H 10.0-92.0 NG/ML Troponin I < 0.30 <0.30 NG/ML Total Protein 8.2 6.4-8.2 GM/DL Albumin 4.2 3.2-4.5 GM/DL Amylase Level 98 25-125 U/L Lipase 90 H 8-78 U/L My Orders Orders - ALPHONSE ANG MD Cbc With Automated Diff (07/30/17 16:09) Magnesium (07/30/17 16:09) Chest 1 View, Ap/Pa Only (07/30/17 16:09) Ekg Tracing (07/30/17 16:09) Cardiac Profile 1 (07/30/17 16:09) Comprehensive Metabolic Panel (07/30/17 16:09) Myoglobin Serum (07/30/17 16:09) Protime With Inr (07/30/17 16:09) Partial Thromboplastin Time (07/30/17 16:09) O2 (07/30/17 16:09) Monitor-Rhythm Ecg Trace Only (07/30/17 16:09) Lipid Panel (07/31/17 06:00) Aspirin Chewable Tablet (Baby Aspirin Ch (07/30/17 16:15) Saline Lock/Iv-Start (07/30/17 16:09) Lipase (07/30/17 16:09) Amylase (07/30/17 16:09) Fibrin Degradation Products (07/30/17 16:09) Lidocaine 2% Viscous 15 Ml (Xylocaine Vi (07/30/17 16:15) Antacid Suspension (Mylanta Suspension (07/30/17 16:15) Manual Differential (07/30/17 16:40) Ct Head Wo (07/30/17 17:07) Prednisone Tablet (Deltasone Tablet) (07/30/17 18:00) Medications Given in ED Current Medications Medications Dose Ordered Sig/[place] Route Start Time Stop Time Status Last Admin Dose Admin Al Hydrox/Mg Hydrox/Simethicone 30 ml ONCE ONCE PO 07/30/17 16:15 07/30/17 16:16 DC 07/30/17 16:39 30 ML Aspirin 324 mg ONCE ONCE PO 07/30/17 16:15 07/30/17 16:16 DC 07/30/17 16:39 324 MG Lidocaine HCl 15 ml ONCE ONCE PO 07/30/17 16:15 07/30/17 16:16 DC 07/30/17 16:39 15 ML Vital Signs/I&O Vital Sign - Last 12Hours 07/30/17 07/30/17 16:05 16:39 Temp 97.2 97.2 Pulse 76 Resp 18 B/P (MAP) 136/115 Pulse Ox 98 O2 Delivery Room Air Blood Pressure Mean: 122 Progress Note : Progress Note Seen and evaluated. IV, labs, EKG and chest x-ray ordered. ASA 324 mg by mouth given. We will add CT head do to history of sarcoidosis and new-onset symptoms. Monitor patient. 1744: Discussed case with Dr Chaves, on-call for Dr. Arredondo and she accepts patient for admission, observation status. I did discuss the case with Dr. Estrada, on-call for cardiology and he will see patient in consult. All findings and concerns discussed with patient who agrees. Prednisone 40 mg by mouth 1 given now and will continue that at 20 mg daily and primary care we'll adjust as needed. ECG Initial ECG Impression Date: Jul 30, 2017 Initial ECG Impression Time: 16:46 Initial ECG Rate: 85 Initial ECG Rhythm: Normal Sinus Comment Sinus rhythm with left axis deviation. No evidence of ST elevation NV. Similar morphology to previous of 12 May 2010 although deeper left axis noted. Interpreted by me. Diagnostic Imaging Diagonstic Imaging: CT Plain Films/CT/US/NM/MRI: head Comments NAME: [facility] REC#: [id number] PT STATUS: REG ER : 1970 PHYSICIAN: ALPHONSE ANG MD ADMIT DATE: 07/30/17/ER Signed Date of Exam: 07/30/17 CT HEAD WO PROCEDURE: CT head without contrast. TECHNIQUE: Multiple contiguous axial images were obtained through the brain without the use of intravenous contrast. INDICATION: Sarcoidosis. Dizziness. COMPARISON: Comparison made with prior brain MRI from July 08, 2014. FINDINGS: By CT imaging, there is no evidence of an acute intracranial abnormality. There is no evidence of intracranial hemorrhage. There is no evidence of intracranial mass effect or shift. There is no abnormal extra-axial fluid collection. The ventricles are appropriate in size and configuration and the basilar cisterns are patent. Mckeon and white matter differentiation appears preserved. The mastoid air cells are clear. The visualized paranasal sinuses demonstrate some mucosal thickening within the right maxillary and ethmoid sinus. There is no air-fluid level. Orbital contents are unremarkable. No acute calvarial abnormality is demonstrated. IMPRESSION: 1. No CT evidence of an acute intracranial abnormality. 2. Right maxillary and ethmoid mucosal thickening. Dictated by: Dictated on workstation # [id number] Dict: 07/30/17 1721 Trans: 07/30/17 173 Interpreted by: NHI PEREZ MD Electronically signed by: NHI PEREZ MD 07/30/17 173 Diagonstic Imaging: Xray Plain Films/CT/US/NM/MRI: chest Comments VIA [facility], [facility]. [place], [place] NAME: ACE HARRY [facility] REC#: [id number] PT STATUS: REG ER : 1970 PHYSICIAN: ALPHONSE ANG MD ADMIT DATE: 07/30/17/ER Draft Date of Exam:07/30/17 CHEST 1 VIEW, AP/PA ONLY EXAM: Portable chest. INDICATION: Sarcoidosis with chest pain. COMPARISON to a prior study from June 02, 2014. FINDINGS: Compared to the priori examination, there is increased atelectasis or infiltrate demonstrated at the medial right lung base. The lungs otherwise appear unchanged. Heart size and mediastinal contours are stable. Prominent halima, when compared with adenopathy are not significantly changed. There is no evidence of failure. There is no effusion or pneumothorax. There is no acute osseous abnormality. IMPRESSION: 1. Prominent bilateral pulmonary halima compatible with hilar adenopathy. 2. New patchy infiltrates within the medial right lung base. Dictated on workstation # [id number] Dict: 07/30/17 1720 Trans: 07/30/17 1740 [facility] [id number] Interpreted by: NHI PEREZ MD Electronically signed by: Departure Communication (Admissions) Time/Spoke to Admitting Phy: 17:44 Time/Spoke to Consulting Phy: 17:46 Impression Impression: Primary Impression: Chest pain Qualified Codes: R07.9 - Chest pain, unspecified Additional Impression: Sarcoidosis Disposition: ADMITTED INPATIENT Condition: Stable Admissions Decision to Admit Reason: Admit from ER (General) Decision to Admit/Date: Jul 30, 2017 Time/Decision to Admit Time: 17:44 Departure-Patient Inst. Referrals: DANIEL ARREDONDO MD (PCP/Family) Primary Care Physician ALPHONSE ANG MD Jul 30, 2017 17:23
--- NOTE | 2017-07-30 17:35 | Diagnostic Imaging Report ---
PROCEDURE: CT head without contrast. TECHNIQUE: Multiple contiguous axial images were obtained through the brain without the use of intravenous contrast. INDICATION: Sarcoidosis. Dizziness. COMPARISON: Comparison made with prior brain MRI from July 08, 2014. FINDINGS: By CT imaging, there is no evidence of an acute intracranial abnormality. There is no evidence of intracranial hemorrhage. There is no evidence of intracranial mass effect or shift. There is no abnormal extra-axial fluid collection. The ventricles are appropriate in size and configuration and the basilar cisterns are patent. Mckeon and white matter differentiation appears preserved. The mastoid air cells are clear. The visualized paranasal sinuses demonstrate some mucosal thickening within the right maxillary and ethmoid sinus. There is no air-fluid level. Orbital contents are unremarkable. No acute calvarial abnormality is demonstrated. IMPRESSION: 1. No CT evidence of an acute intracranial abnormality. 2. Right maxillary and ethmoid mucosal thickening. Dictated by: Dictated on workstation # [id number]
--- NOTE | 2017-07-30 17:41 | Diagnostic Imaging Report ---
EXAM: Portable chest. INDICATION: Sarcoidosis with chest pain. COMPARISON to a prior study from June 02, 2014. FINDINGS: Compared to the priori examination, there is increased atelectasis or infiltrate demonstrated at the medial right lung base. The lungs otherwise appear unchanged. Heart size and mediastinal contours are stable. Prominent halima, when compared with adenopathy are not significantly changed. There is no evidence of failure. There is no effusion or pneumothorax. There is no acute osseous abnormality. IMPRESSION: 1. Prominent bilateral pulmonary halima compatible with hilar adenopathy. 2. New patchy infiltrates within the medial right lung base. Dictated by: Dictated on workstation # [id number]
[2017-07-30] MEDS ORDERED: predniSONE 20 MG TAB PO ONE (18:00)
[2017-07-30] MEDS ORDERED: PANTOPRAZOLE 40 MG (PROTONIX) TAB PO ONE (20:15)
[2017-07-30] MEDS ORDERED: morphine INJ 4 MG/ML 1 ML (VIAL/SYRINGE) IVP PRN (21:30)
[2017-07-30] MEDS ORDERED: NS IV 1000 ML 1,000 ML IV SCH (21:30)
[2017-07-30] MEDS ORDERED: NITROGLYCERIN 0.4 MG SL TABS BTL 25'S SL PRN (21:30)
[2017-07-30] MEDS: CATHETER FLUSH 10 ML SYR IV SCH (21:40)
[2017-07-30] MEDS: GABAPENTIN 600 MG (NEURONTIN) TAB PO SCH (21:40)
[2017-07-30] MEDS: NS IV 1000 ML 1,000 ML IV SCH (21:40)
[2017-07-30] MEDS: HYDROcodone/APAP 7.5 MG/325 MG (LORTAB, LORCET PLUS) TABLET PO PRN (21:41)
[2017-07-30] MEDS ORDERED: CATHETER FLUSH 10 ML SYR IV PRN (21:45)
[2017-07-30] MEDS ORDERED: NITROGLYCERIN SUBLINGUAL 0.4 MG TAB (NITROSTAT) SL PRN (21:45)
[2017-07-30] MEDS ORDERED: morphine INJ 4 MG/ML 1 ML (VIAL/SYRINGE) IV PRN (21:45)
[2017-07-30 22:48] LABS: MYOGLOBIN SERUM 95.7 NG/ML (10.0-92.0)
[2017-07-31] VITALS: BP 129/65
[2017-07-31 03:30] VITALS: BP 117/82
[2017-07-31 05:35] LABS: BASOPHILS % (AUTO) 0 % (0-10); EOSINOPHILS % (AUTO) 0 % (0-10); LYMPHOCYTES # (AUTO) 0.8 X 10^3 (1.0-4.0); LYMPHOCYTES % (AUTO) 10 % (12-44); MEAN CORPUSCULAR HEMOGLOBIN 29 PG (25-34); MEAN CORPUSCULAR HGB CONC 33 G/DL (32-36); MEAN CORPUSCULAR VOLUME 89 FL (80-99); MEAN PLATELET VOLUME 10.3 FL (7.4-10.4); MONOCYTES # (AUTO) 0.5 X 10^3 (0.0-1.0); MONOCYTES % (AUTO) 6 % (0-12); NEUTROPHILS # (AUTO) 6.6 X 10^3 (1.8-7.8); NEUTROPHILS % (AUTO) 84 % (42-75); PLATELET COUNT 281 10^3/uL (130-400); RED CELL DISTRIBUTION WIDTH 13.4 % (10.0-14.5); WHITE BLOOD COUNT 7.9 10^3/uL (4.3-11.0)
[2017-07-31 05:49] LABS: CHOLESTEROL 208 MG/DL (< 200); CREATINE KINASE 127 U/L (29-168); DIRECT LDL 115 MG/DL (1-129); TRIGLYCERIDES 85 MG/DL (<150); VLDL CHOLESTEROL 17 MG/DL (5-40)
[2017-07-31 05:51] LABS: ALANINE AMINOTRANSFERASE 66 U/L (0-55); ANION GAP 9 MMOL/L (5-14); ASPARTATE AMINO TRANSFERASE 37 U/L (5-34); BILIRUBIN,TOTAL 0.4 MG/DL (0.1-1.0); BLOOD UREA NITROGEN 11 MG/DL (7-18); BUN/CREATININE RATIO 13; CALCIUM 9.9 MG/DL (8.5-10.1); CARBON DIOXIDE 27 MMOL/L (21-32); CHLORIDE 103 MMOL/L (98-107); CREATININE SERUM 0.84 MG/DL (0.60-1.30); GFR ESTIMATED > 60; GLUCOSE 121 MG/DL (70-105); POTASSIUM 4.5 MMOL/L (3.6-5.0); SODIUM 139 MMOL/L (135-145); TOTAL PROTEIN 7.3 GM/DL (6.4-8.2)
[2017-07-31 05:56] LABS: MYOGLOBIN SERUM 94.8 NG/ML (10.0-92.0)
[2017-07-31] MEDS ORDERED: inSUlin (REGULAR) HUMAN 1 UNIT/0.01 ML (CHARGE PER UNIT) SC SCH (06:00)
[2017-07-31] MEDS: PANTOPRAZOLE 40 MG (PROTONIX) TAB PO SCH (06:03)
[2017-07-31] MEDS: CATHETER FLUSH 10 ML SYR IV SCH ×3 (06:03→22:00)
[2017-07-31] MEDS: predniSONE 20 MG TAB PO SCH (06:03)
[2017-07-31] MEDS: inSUlin ASPART (NovoLOG) 1 UNIT/0.01 ML (CHARGE PER UNIT) SC SCH ×4 (06:42→21:32)
[2017-07-31 07:58] VITALS: BP 121/69
[2017-07-31] MEDS: HYDROcodone/APAP 7.5 MG/325 MG (LORTAB, LORCET PLUS) TABLET PO PRN ×3 (08:16→21:33)
[2017-07-31] MEDS: GABAPENTIN 600 MG (NEURONTIN) TAB PO SCH ×2 (08:16→21:33)
[2017-07-31] MEDS: ASPIRIN E.C. 325 MG (ECOTRIN) TABLET PO SCH (08:17)
[2017-07-31] MEDS ORDERED: ASPIRIN E.C. 325 MG (ECOTRIN) TABLET PO SCH (09:00)
--- NOTE | 2017-07-31 09:30 | History & Physicial ---
History of Present Illness History of Present Illness Reason for visit/HPI PT IS A 46 Y/O FEMALE WHO IS A PATIENT IN MY CLINIC. SHE REPORTS THAT SHE HAD CHEST PAIN GOING DOWN HER LEFT ARM. SHE REPORTS THAT SHE HAD "LEAD WEIGHT" TYPE OF PAIN IN HER CHEST ON THE LEFT AND THEN IT RADIATED DOWN HER LEFT ARM - THE PAIN IN HER LEFT ARM CAME AGAIN THIS MORNING. Date of Admission Jul 30, 2017 at 17:47 Time Seen by Provider: 09:15 I consulted on this patient on 07/31/17 09:15 Attending Physician Daniel Arredondo MD Admitting Physician Daniel Arredondo MD Consult DR. Andrew BENSON - CARDIOLOGY Allergies and Home Medications Allergies Coded Allergies: sertraline (Unverified Allergy, Mild, 05/27/09) Home Medications Albuterol Sulfate 6.7 Gm Hfa.aer.ad, 2 PUFF IH Q4H PRN for SHORTNESS OF BREATH, (Reported) Ascorbate Calcium 500 Mg Tablet, 1,000 MG PO HS, (Reported) TAKES 2 (500MG) TABLETS Baclofen 10 Mg Tablet, 10 MG PO DAILY PRN for MUSCLE SPASMS, (Reported) Cholecalciferol 1,000 Unit Tablet, 1,000 UNITS PO DAILY, (Reported) Cyclobenzaprine Hcl 10 Mg Tablet, 10 MG PO TID PRN for MUSCLE SPASMS, (Reported) Folic Acid 1 Mg Tablet, 1 MG PO DAILY, (Reported) Gabapentin 800 Mg Tablet, 1,600 MG PO BID, (Reported) TAKES 2 (800MG) TABLETS Hydrocodone/Acetaminophen 1 Each Tablet, 0.5-1 TAB PO BID PRN for PAIN-MODERATE, (Reported) Levalbuterol HCl 0.63 Mg/3 Ml Vial.neb, 0.63 MG NEB Q6H PRN for SHORTNESS OF BREATH, (Reported) Loratadine 10 Mg Capsule, 10 MG PO DAILY, (Reported) Lorcaserin HCl 20 Mg Tab.er.24h, 20 MG PO DAILY, (Reported) Methotrexate Sodium 25 Mg/1 Ml Vial, 0.7 ML INJ Th, (Reported) Prednisone 5 Mg Tablet, 5 MG PO DAILY, (Reported) Past Qjczppo-Jwbulo-Elnrqs Hx Patient Social History Living Status: LIVES IN HOME Alcohol Use: Denies Use Recreational Drug Use: No (PAST HX--"CLEAN 7 YRS") Smoking Status: Former Smoker Former Smoker, Quit: Jan 05, 2004 Physical Abuse Screen: No Sexual Abuse: No Recent Foreign Travel: No Contact w/other who traveled: No Recent Hopitalizations: Yes (CHILD AND TUBAL) Recent Infectious Disease Expo: No Immunizations Up To Date Tetanus Booster (TDap): Less than 5yrs Date of Pneumonia Vaccine: Aug 26, 2015 Date of Influenza Vaccine: Aug 26, 2015 Surgeries Yes (lithotripsy, lung biopsy, CHOLEY, ORIF RIGHT ANKLE) Gallbladder, Tubal Ligation Respiratory Yes (SARCOIDOSIS) Currently Using CPAP: Yes (AT HS) Cardiovascular No Neurological No Reproductive System : No Hx Reproductive Disorders: No Sexually Transmitted Disease: No Genitourinary Yes Kidney Stones Gastrointestinal No Musculoskeletal Yes (11/29/15 ORIF RIGHT ANKLE) Fractures Endocrine History of Endocrine Disorders: No HEENT History of HEENT Disorders: No Loss of Vision: Denies Hearing Impairment: Denies Cancer No Psychosocial History of Psychiatric Problem: Yes Behavioral Health Disorders: Depression Integumentary History of Skin or Integumenta: No Blood Transfusions History of Blood Disorders: No Reviewed Nursing Assessment Reviewed/Agree w Nursing PMH: Yes Family Medical History Significant Family History: Heart Disease (FATHER), CAD Over 55 Years Old Family Hx: Myocardial infarction 19 FATHER Constitutional: No chills, No diaphoresis, No dizziness, weakness EENTM: No blurred vision Respiratory: No cough, dyspnea on exertion Cardiovascular: chest pain (ON LEFT AND DOWN TO LEFT ARM) Gastrointestinal: No abdominal pain, No constipation, No diarrhea Genitourinary: no symptoms reported Musculoskeletal: No back pain, No joint pain Skin: no symptoms reported Psychiatric/Neurological: Depressed, Other (INSOMNIA) All Other Systems Reviewed Negative Unless Noted: Yes Physical Exam Vital Signs Vital Sign - Last 12Hours 07/30/17 16:05 Temp 97.2 Pulse 76 Resp 18 B/P (MAP) 136/115 Pulse Ox 98 O2 Delivery Room Air Capillary Refill : Less Than 3 Seconds General Appearance: No Apparent Distress, WD/WN Eyes: Bilateral Eye Normal Inspection, Bilateral Eye PERRL, Bilateral Eye EOMI HEENT: PERRL/EOMI, Pharynx Normal Neck: Full Range of Motion, Supple Respiratory: Chest Non Tender, Lungs Clear, Normal Breath Sounds, No Accessory Muscle Use Cardiovascular: Regular Rate, Rhythm, No Edema Gastrointestinal: Normal Bowel Sounds, No Organomegaly, Soft Rectal: Deferred Back: Normal Inspection Extremity: Normal Capillary Refill, Normal Inspection, Non Tender, No Calf Tenderness, No Pedal Edema Neurologic/Psychiatric: Alert, Oriented x3, No Motor/Sensory Deficits, Normal Mood/Affect Lymphatic: No Adenopathy Assessment/Plan Assessment and Plan CHEST PAIN LEFT ARM PAIN SARCOIDOSIS NEUROSARCOIDOSIS PERIPHERAL NEUROPATHY DEPRESSION INSOMNIA CHEST PAIN - CONSULT TO DR. BENSON - WITH PATIENT'S OTHER RISK FACTORS - SHE MAY NEED A STRESS TEST BEFORE DISCHARGE. LEFT ARM PAIN SARCOIDOSIS - WITH NEUROSARCOIDOSIS - SUPPORTIVE CARE, DEFER TREATMENT TO SPECIALIST AT [facility]. PERIPHERAL NEUROPATHY - RESTART NEURONTIN. DEPRESSION - RESTART HOME MEDICATION - MONITOR SYMPTOMS. INSOMNIA - CHRONIC - THE PATIENT TAKES AMBIEN INTERMITTENTLY. DVT PROPHYLAXIS WITH SCD'S GI PROPHYLAXIS WITH PEPCID Problems: Admission Diagnosis CHEST PAIN LEFT ARM PAIN SARCOIDOSIS NEUROSARCOIDOSIS PERIPHERAL NEUROPATHY DEPRESSION INSOMNIA Clinical Quality Measures AMI/AHF: ASA po Prior to arrival: No DVT/VTE Risk/Contraindication: Risk Factor Score Per Nursin RFS Level Per Nursing on Admit: 2=Moderate DANIEL ARREDONDO MD Jul 31, 2017 09:30
[2017-07-31 12:00] VITALS: BP 135/76
[2017-07-31] MEDS ORDERED: METH25VI57 INJ (14:00)
[2017-07-31] MEDS ORDERED: FOLI1TAB24 PO (14:00)
[2017-07-31] MEDS ORDERED: BACL10TA PO (14:00)
[2017-07-31] MEDS ORDERED: GABA800T2 PO (14:00)
[2017-07-31] MEDS ORDERED: HYDR-3816 PO (14:00)
[2017-07-31] MEDS ORDERED: LEVA0.6313 NEB (14:00)
[2017-07-31] MEDS ORDERED: PRED5TAB PO (14:00)
[2017-07-31] MEDS ORDERED: RT-ALBUINH IH (14:02)
[2017-07-31] MEDS ORDERED: LORC20TA PO (14:29)
--- NOTE | 2017-07-31 14:41 | Consultation-Cardiology ---
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 She presented with prolonged episode of chest pain. The chest pain is substernal. There is no radiation. There is no associated other cardiac symptoms. She had a previous echocardiogram in 2013 which was normal. She's been on methotrexate and prednisone chronically. Review of Systems-Cardiology Review of Systems Constitutional: No As described under HPI, No no symptoms reported, No chills, No fever, No lightheadedness, No malaise, No tiredness, No weight loss, No weight gain, No other Eyes: No As described under HPI, No no symptoms reported, No blindness, No blurred vision, No contact lenses, No drainage, No decreased acuity, No foreign body sensation, No glasses, No inflammation, No pain, No photophobia, No previous injury, No shadows, No tunnel vision, No other, No vision change Ears/Nose/Throat: No As described under HPI, No no symptoms reported, No chronic hearing loss, No epistaxis, No ear discharge, No ear pain, No loose teeth, No mouth pain, No mouth swelling, No nasal drainage, No nose pain, No recent hearing loss, No throat pain, No throat swelling, No ulcerations, No other Respiratory: No no symptoms reported, No As described under HPI, No cough, No orthopnea, No shortness of breath, No SOB with excertion, No SOB at rest, No stridor, No wheezing, No other Cardiovascular: chest pain Gastrointestinal: No no symptoms reported, No As described under HPI, No abdomen distended, No abdominal pain, No blood streaked bowels, No constipation , No diarrhea, No difficulty swallowing, No nausea, No poor appetite, No poor fluid intake, No rectal bleeding, No vomiting, No other, No nausea/vomiting/ diarrhea, No stool coloration changes Genitourinary: No no symptoms reported, No As described under HPI, No burning, No dysuria, No discharge, No frequency, No flank pain, No hematuria, No incontinence, No pain, No urgency, No other, No urine frequency changes, No urine coloration changes Musculoskeletal: No no symptoms reported, No As describe under HPI, No back pain, No gout, No joint pain, No joint swelling, No muscle pain, No muscle stiffness, No neck pain, No other Skin: No no symptoms reported, No As described under HPI, No change in color, No change in hair/nails, No dryness, No lesions, No lumps, No rash, No other, No skin related problems, No ulcerations, No rash on exposed areas, No ulcerations on exposed areas Psychiatric/Neurological: No no symptoms reported, No As described under HPI, No anxiety, No depression, No emotional problems, No headache, No numbness, No pre-existing deficit, No seizure, No tingling, No tremors, No weakness, No other , No focal weakness, No syncope All Other Systems Reviewed Negative Unless Noted: Yes [id number]-[id number] Hx Patient Social History Alcohol Use: Denies Use Recreational Drug Use: No (PAST HX--"CLEAN 7 YRS") Smoking Status: Former Smoker Recent Foreign Travel: No Recent Infectious Disease Expo: No Physical Abuse Screen: No Sexual Abuse: No Immunizations Up To Date Tetanus Booster (TDap): Less than 5yrs Date of Pneumonia Vaccine: Aug 26, 2015 Date of Influenza Vaccine: Aug 26, 2015 Past Medical History PMH As described under Assessment. Family Medical History Family History: Myocardial infarction 19 FATHER Allergies and Home Medications Allergies Coded Allergies: sertraline (Unverified Allergy, Mild, 05/27/09) Home Medications Albuterol Sulfate 6.7 Gm Hfa.aer.ad, 2 PUFF IH Q4H PRN for SHORTNESS OF BREATH, (Reported) Ascorbate Calcium 500 Mg Tablet, 1,000 MG PO HS, (Reported) TAKES 2 (500MG) TABLETS Baclofen 10 Mg Tablet, 10 MG PO DAILY PRN for MUSCLE SPASMS, (Reported) Cholecalciferol 1,000 Unit Tablet, 1,000 UNITS PO DAILY, (Reported) Cyclobenzaprine Hcl 10 Mg Tablet, 10 MG PO TID PRN for MUSCLE SPASMS, (Reported) Folic Acid 1 Mg Tablet, 1 MG PO DAILY, (Reported) Gabapentin 800 Mg Tablet, 1,600 MG PO BID, (Reported) TAKES 2 (800MG) TABLETS Hydrocodone/Acetaminophen 1 Each Tablet, 0.5-1 TAB PO BID PRN for PAIN-MODERATE, (Reported) Levalbuterol HCl 0.63 Mg/3 Ml Vial.neb, 0.63 MG NEB Q6H PRN for SHORTNESS OF BREATH, (Reported) Loratadine 10 Mg Capsule, 10 MG PO DAILY, (Reported) Lorcaserin HCl 20 Mg Tab.er.24h, 20 MG PO DAILY, (Reported) Methotrexate Sodium 25 Mg/1 Ml Vial, 0.7 ML INJ Th, (Reported) Prednisone 5 Mg Tablet, 5 MG PO DAILY, (Reported) Physical Exam-Cardiology Physical Exam Vital Signs/I&O Vital Sign - Last 12Hours 07/31/17 07/31/17 07/31/17 07/31/17 12:00 13:00 16:05 19:00 Temp 97.0 97.8 Pulse 68 143 83 71 Resp 20 18 B/P (MAP) 135/76 112/69 Pulse Ox 98 98 O2 Delivery Room Air Room Air 07/31/17 20:00 Temp 97.8 Pulse 76 Resp 22 B/P (MAP) 138/84 Pulse Ox 98 O2 Delivery Room Air Intake and Output 08/01/17 00:00 Intake Total 1980 ml Output Total 1400 ml Balance 580 ml Capillary Refill : Less Than 3 Seconds Constitutional: No appears stated age, No AAO x 3, No apparent distress, No PERRL, No well-developed, No well-nourished, No other HEENT: No PERRL, No normal ENT inspection, No TMs normal, No pharynx normal, No scleral icterus (R), No scleral icterus (L), No pale conjunctivae (R), No pale conjunctivae (L), No photophobia, No TM abnormal (R), No TM abnormal (L), No pharyngeal erythema, No tonsillar exudate, No other, No discharge, No EOMI, No hearing is well preserved, No hard of hearing, No oral hygience is good, No ulceration, No xanthelasmas are seen Neck: No non-tender, No full range of motion, No supple, No normal inspection, No carotid bruit, No limited range of motion, No lymphadenopathy (R), No lymphadenopathy (L), No tender lateral, No tender midline, No thyromegaly, No other, No carotid pulses are 2 + bilaterally, No with good upstrokes Respiratory: No accessory muscle use, No respiratory distress, No chest tender , No chest expansion is symmetric, No chest is bilaterally symmetric, No lungs clear to percussion, No lungs clear to auscultation, No crackles, No rhonchi, No rales, No stridor, No wheezing, No pleural rub, No other Cardiovascular: No regular rate-rhythm, No irregularly irregular, No extra beats, No parasternal heave is noted, No JVD, No edema, No bradycardia, No tachycardia, No point of maximal impulse, No cardiac thrills are palpable, No S1 and S2, No gallop/S3, No gallop/S4, No diastolic murmur, No systolic murmur, No friction rub, No click, No other Gastrointestinal: No tender, No soft, No round, No distended, No pulsatile mass , No organomegaly, No guarding, No rebound, No tenderness, No hernia, No mass, No audible bowel sounds, No abnormal bowel sounds, No abdominal bruits, No spleenomegaly, No other Rectal: deferred Extremities: No normal range of motion, No non-tender, No normal inspection, No pedal edema, No calf tenderness, No normal capillary refill, No pelvis stable , No calf tenderness, No inflammation, No pedal edema, No slow capillary refill , No swelling, No other, No abrasion, No clubbing, No cyanosis, No ecchymosis, No laceration, No no lower extremity edema bilateral, No significant edema, No tenderness, No wound Neurologic/Psychiatric: No irrigation service technician II-XII nml as tested, No no motor/sensory deficits, No alert, No normal mood/affect, No oriented x 3, No abnormal cerebellar tests, No abnormal irrigation service technician II-XII, No abnormal gait, No aphasia, No EOM palsy, No facial droop, No motor weakness, No sensory deficit, No depressed affect, No disoriented x 3, No other, No grossly intact, No power is 5/5 both on sides Skin: No normal color, No warm/dry, No cyanosis, No cool, No diaphoresis, No damp, No ecchymosis, No jaundice, No mottled, No pallor, No rash, No tattoos/ piercings, No ulcerations, No rash on exposed areas, No ulcerations on exposed areas, No other Data Review Labs Laboratory Tests 07/31/17 04:58: White Blood Count 7.9, Red Blood Count 4.80, Hemoglobin 14.0, Hematocrit 43, Mean Corpuscular Volume 89, Mean Corpuscular Hemoglobin 29, Mean Corpuscular Hemoglobin Concent 33, Red Cell Distribution Width 13.4, Platelet Count 281, Mean Platelet Volume 10.3, Neutrophils (%) (Auto) 84H, Lymphocytes (%) (Auto) 10L, Monocytes (%) (Auto) 6, Eosinophils (%) (Auto) 0, Basophils (%) (Auto) 0, Neutrophils # (Auto) 6.6, Lymphocytes # (Auto) 0.8L, Monocytes # (Auto) 0.5, Eosinophils # (Auto) 0.0, Basophils # (Auto) 0.0, Sodium Level 139, Potassium Level 4.5, Chloride Level 103, Carbon Dioxide Level 27, Anion Gap 9, Blood Urea Nitrogen 11, Creatinine 0.84, Estimat Glomerular Filtration Rate > 60, BUN/ Creatinine Ratio 13, Glucose Level 121H, Calcium Level 9.9, Total Bilirubin 0.4 , Aspartate Amino Transf (AST/SGOT) 37H, Alanine Aminotransferase (ALT/SGPT) 66H , Alkaline Phosphatase 298H, Total Creatine Kinase 127, Myoglobin 94.8H, Troponin I < 0.30, Total Protein 7.3, Albumin 4.0, Triglycerides Level 85, Cholesterol Level 208H, LDL Cholesterol Direct 115, VLDL Cholesterol 17, HDL Cholesterol 77H 07/31/17 05:15: Glucometer 109 07/31/17 09:37: Glucometer 122H 07/31/17 16:04: Glucometer 115H 07/31/17 21:26: Glucometer 155H ECG Impression ECG Initial ECG Rhythm: Normal Sinus Comment SD interval 200 ms. A/P-Cardiology Assessment/Admission Diagnosis 1. Sarcoidosis, 2. Prolonged steroid use, and 3. Chest pain Plan This is a 46-year-old lady with history of sarcoidosis on long-term steroids. She presents with episode of chest pain. She denies any other cardiac risk factors however since the patient is on prolonged steroids I have recommended doing a nuclear stress test tomorrow. An echocardiogram done in 2013 showed normal LV function. However transthoracic echocardiogram has moderate sensitivity for cardiac sarcoidosis. Cardiac PET scan or cardiac MRI is recommended. She can be done as an outpatient. Thank you for your consultation. Please call me if you have any questions. Cesar Estrada MD, FACP, FACC, FSCAI, FHRS, CCDS Interventional Cardiology Cardiac Electrophysiology Vascular Medicine and Endovascular Interventions Clinical Quality Measures AMI/AHF: ASA po Prior to arrival: No DVT/VTE Risk/Contraindication: Risk Factor Score Per Nursin RFS Level Per Nursing on Admit: 2=Moderate Kaz ESTRADA MD Jul 31, 2017 14:41
[2017-07-31 16:05] VITALS: BP 112/69
[2017-07-31 20:00] VITALS: BP 138/84
[2017-07-31] MEDS ORDERED: ZOLPIDEM 5 MG (AMBIEN) TAB PO SCH (21:00)
[2017-07-31] MEDS: NS IV 1000 ML 1,000 ML IV SCH (21:58)
[2017-08-01] VITALS: BP 120/59
[2017-08-01 04:00] VITALS: BP 129/66
[2017-08-01] MEDS: CATHETER FLUSH 10 ML SYR IV SCH ×2 (06:04→12:12)
[2017-08-01] MEDS: inSUlin ASPART (NovoLOG) 1 UNIT/0.01 ML (CHARGE PER UNIT) SC SCH ×2 (06:06→09:48)
[2017-08-01] MEDS: predniSONE 20 MG TAB PO SCH (06:46)
[2017-08-01] MEDS: PANTOPRAZOLE 40 MG (PROTONIX) TAB PO SCH (06:46)
[2017-08-01 08:00] VITALS: BP 134/86
[2017-08-01] MEDS ORDERED: ASPI-586 PO (08:25)
--- NOTE | 2017-08-01 08:29 | Discharge Inst-Complex ---
PDI Med Rec & Follow Up Appt. New Medications: Aspirin (Aspir 81) 81 Mg Tablet.dr 81 MG PO DAILY for 90 Days, #90 TAB Continued Medications: Albuterol Sulfate (Proventil Hfa) 6.7 Gm Hfa.aer.ad 2 PUFF IH Q4H PRN for SHORTNESS OF BREATH, EACH Ascorbate Calcium (Vitamin C) 500 Mg Tablet 1000 MG PO HS, TAB TAKES 2 (500MG) TABLETS Baclofen (Baclofen) 10 Mg Tablet 10 MG PO DAILY PRN for MUSCLE SPASMS, TAB Cholecalciferol (Vitamin D) 1,000 Unit Tablet 1000 UNITS PO DAILY, TAB Cyclobenzaprine Hcl (Cyclobenzaprine Hcl) 10 Mg Tablet 10 MG PO TID PRN for MUSCLE SPASMS, TAB Folic Acid (Folic Acid) 1 Mg Tablet 1 MG PO DAILY, TAB Gabapentin (Gabapentin) 800 Mg Tablet 1600 MG PO BID, TAB TAKES 2 (800MG) TABLETS Hydrocodone/Acetaminophen (Hydrocodon-Acetaminoph 7.5-325) 1 Each Tablet 0.5-1 TAB PO BID PRN for PAIN-MODERATE, TAB Levalbuterol HCl (Levalbuterol HCl) 0.63 Mg/3 Ml Vial.neb 0.63 MG NEB Q6H PRN for SHORTNESS OF BREATH, EA Loratadine (Claritin) 10 Mg Capsule 10 MG PO DAILY, CAP Lorcaserin HCl (Belviq Xr) 20 Mg Tab.er.24h 20 MG PO DAILY, TAB Methotrexate Sodium (Methotrexate) 25 Mg/1 Ml Vial 0.7 ML INJ Th, EA Prednisone (Prednisone) 5 Mg Tablet 5 MG PO DAILY, TAB Prescription: Transmitted to Pharmacy Patient Instructions: FOLLOW UP WITH [facility] IN 1 WEEK FROM DISCHARGE Activity, Diet and PDI Resume Normal Activity: Yes Discharge Diet: Regular Diet Drink 6-8 Glasses of Fluid/Day: Yes Driving Instructions: No Driving for 24 Hours May Return to Work/School/Day: May Return to Work, May Return to School Symptoms to Reoprt to : Appetite Changes, Fever Over 101 Degrees F, Pain/ Pressure in Chest, Shortness of Breath For Problems or Questions: Contact Your Physician, Go to Emergency Room DANIEL BRICENO MD Aug 01, 2017 08:29
--- NOTE | 2017-08-01 08:29 | Discharge Summary ---
Diagnosis/Chief Complaint Date of Admission Jul 30, 2017 at 17:47 Date of Discharge Discharge Date: Aug 01, 2017 Discharge Time: 1500 Admission Diagnosis Admission Diagnosis CHEST PAIN LEFT ARM PAIN SARCOIDOSIS NEUROSARCOIDOSIS PERIPHERAL NEUROPATHY DEPRESSION INSOMNIA Discharge Diagnosis CHEST PAIN LEFT ARM PAIN SARCOIDOSIS NEUROSARCOIDOSIS PERIPHERAL NEUROPATHY DEPRESSION INSOMNIA Reason Hospital Visit PT IS A 46 Y/O FEMALE WHO IS A PATIENT IN MY CLINIC. SHE REPORTS THAT SHE HAD CHEST PAIN GOING DOWN HER LEFT ARM. SHE REPORTS THAT SHE HAD "LEAD WEIGHT" TYPE OF PAIN IN HER CHEST ON THE LEFT AND THEN IT RADIATED DOWN HER LEFT ARM - THE PAIN IN HER LEFT ARM CAME AGAIN THIS MORNING. Discharge Summary Discharge Physical Examination Allergies: Coded Allergies: sertraline (Unverified Allergy, Mild, 05/27/09) Vitals & I&Os General Appearance: Alert, Oriented X3, Cooperative HEENT: Atraumatic, PERRLA Respiratory: Clear to Auscultation Cardiovascular: Regular Rate Abdominal: Normal Bowel Sounds, Soft Extremities: No Clubbing Neuro: Cranial Nerves 3-12 NL Psych/Mental Status: Mental Status NL, Mood NL Hospital Course CHEST PAIN LEFT ARM PAIN SARCOIDOSIS NEUROSARCOIDOSIS PERIPHERAL NEUROPATHY DEPRESSION INSOMNIA CHEST PAIN - CONSULT TO DR. BENSON - WITH PATIENT'S OTHER RISK FACTORS - SHE MAY NEED A STRESS TEST BEFORE DISCHARGE. LEFT ARM PAIN - NEGATIVE PER FILTER TENDER JELLY. SARCOIDOSIS - WITH NEUROSARCOIDOSIS - SUPPORTIVE CARE, DEFER TREATMENT TO SPECIALIST AT [facility]. PERIPHERAL NEUROPATHY - RESTART NEURONTIN. DEPRESSION - RESTART HOME MEDICATION - MONITOR SYMPTOMS. INSOMNIA - CHRONIC - THE PATIENT TAKES AMBIEN INTERMITTENTLY. DVT PROPHYLAXIS WITH SCD'S GI PROPHYLAXIS WITH PEPCID Pending Labs Discharge Instructions to patient/family Please see electonic discharge instructions given to patient. Discharge Medications Reviewed and agree with Discharge Medication list on patient's Discharge Instruction sheet Clinical Quality Measures AMI/AHF: ASA po Prior to arrival: No DVT/VTE Risk/Contraindication: Risk Factor Score Per Nursin RFS Level Per Nursing on Admit: 2=Moderate DANIEL BRICENO MD Aug 01, 2017 08:29
[2017-08-01] MEDS: ASPIRIN E.C. 325 MG (ECOTRIN) TABLET PO SCH (09:05)
[2017-08-01] MEDS: GABAPENTIN 600 MG (NEURONTIN) TAB PO SCH (09:05)
[2017-08-01] MEDS: HYDROcodone/APAP 7.5 MG/325 MG (LORTAB, LORCET PLUS) TABLET PO PRN (10:20)
[2017-08-01] MEDS ORDERED: REGADENOSON 0.4 MG/5 ML SYR (LEXISCAN) IV ONE ×2 (11:32→12:15)
[2017-08-01 12:09] VITALS: BP 123/63
--- NOTE | 2017-08-01 12:28 | Cardiology Progress Note ---
Cardiology SOAP Progress Note Subjective: No further chest pain Objective: I&O/Vital Signs Vital Sign - Last 12Hours 08/01/17 08/01/17 08/01/17 08/01/17 04:00 07:00 08:00 12:09 Temp 96.5 96.1 Pulse 76 88 76 78 Resp 18 20 16 B/P (MAP) 129/66 134/86 123/63 Pulse Ox 97 99 98 O2 Delivery Room Air Room Air Room Air Weight (Pounds): 260 Weight (Ounces): 5.0 Weight (Calculated Kilograms): 118.059512 Constitutional: No appears stated age, No AAO x 3, No apparent distress, No PERRL, No well-developed, No well-nourished, No other Respiratory: No accessory muscle use, No respiratory distress, No chest tender , No chest expansion is symmetric, No chest is bilaterally symmetric, No lungs clear to percussion, No lungs clear to auscultation, No crackles, No rhonchi, No rales, No stridor, No wheezing, No pleural rub, No other Cardiovascular: No regular rate-rhythm, No irregularly irregular, No extra beats, No parasternal heave is noted, No JVD, No edema, No bradycardia, No tachycardia, No point of maximal impulse, No cardiac thrills are palpable, No S1 and S2, No gallop/S3, No gallop/S4, No diastolic murmur, No systolic murmur, No friction rub, No click, No other Gastrointestional: No tender, No soft, No round, No distended, No pulsatile mass, No organomegaly, No guarding, No rebound, No tenderness, No hernia, No mass, No audible bowel sounds, No abnormal bowel sounds, No abdominal bruits, No spleenomegaly, No other Extremities: No normal range of motion, No non-tender, No normal inspection, No pedal edema, No calf tenderness, No normal capillary refill, No pelvis stable , No calf tenderness, No inflammation, No pedal edema, No slow capillary refill , No swelling, No other, No abrasion, No clubbing, No cyanosis, No ecchymosis, No laceration, No no lower extremity edema bilateral, No significant edema, No tenderness, No wound Neurologic/Psychiatric: No process lead II-XII nml as tested, No no motor/sensory deficits, No alert, No normal mood/affect, No oriented x 3, No abnormal cerebellar tests, No abnormal process lead II-XII, No abnormal gait, No aphasia, No EOM palsy, No facial droop, No motor weakness, No sensory deficit, No depressed affect, No disoriented x 3, No other, No grossly intact, No power is 5/5 both on sides Skin: No normal color, No warm/dry, No cyanosis, No cool, No diaphoresis, No damp, No ecchymosis, No jaundice, No mottled, No pallor, No rash, No tattoos/ piercings, No ulcerations, No rash on exposed areas, No ulcerations on exposed areas, No other Results/Procedures: Labs Laboratory Tests 07/31/17 16:04: Glucometer 115H 07/31/17 21:26: Glucometer 155H 08/01/17 05:16: Glucometer 104 08/01/17 09:42: Glucometer 106 A/P: Assessment/Dx: 1. Sarcoidosis, 2. Prolonged steroid use, and 3. Chest pain Plan: This is a 46-year-old lady with history of sarcoidosis on long-term steroids. She presents with episode of chest pain. She denies any other cardiac risk factors however since the patient is on prolonged steroids I have recommended doing a nuclear stress test. If no severe abnormality on the nuclear stress test, she can be discharged home to follow-up in the office. An echocardiogram done in 2013 showed normal LV function. However transthoracic echocardiogram has moderate sensitivity for cardiac sarcoidosis. Cardiac PET scan or cardiac MRI is recommended. She can be done as an outpatient. Thank you for your consultation. Please call me if you have any questions. Cesar Estrada MD, FACP, FACC, FSCAI, FHRS, CCDS Interventional Cardiology Cardiac Electrophysiology Vascular Medicine and Endovascular Interventions Clinical Quality Measures AMI/AHF: ASA po Prior to arrival: Kaz Beyer MD Aug 01, 2017 12:28 pm
[2017-08-01 13:00] VITALS: BP 125/84
[2017-08-01 15:20] VITALS: BP 125/84
[2017-08-01] MEDS ORDERED: GABAPENTIN 400 MG (NEURONTIN) CAP PO SCH (21:00)
--- NOTE | 2017-08-02 09:21 | STRESS TEST ---
DATE OF SERVICE: 08/01/2017 NUCLEAR STRESS TEST REPORT: ATTENDING PHYSICIAN: Dr. Arredondo DIAGNOSIS: Chest pain, sarcoidosis. PROCEDURE DETAILS: The patient was brought to the stress lab after informed consent was taken. Stress test was performed according to the Lexiscan protocol. Then 0.4 mg of Lexiscan was given IV. Low grade exercise was performed. Baseline EKG showed sinus rhythm at 76 BPM. Maximum heart rate was 137 BPM. Baseline blood pressure was 123/63 mmHg. Maximum blood pressure was 139/87 mmHg. There was no chest pain, EKG changes or arrhythmias noted. 10.40 mCi of Myoview were given for rest imaging and 28.8 mCi of Myoview were given for stress imaging. TID 1.25. EF 80%. Poor resting images. However, the stress images did not show any defects. Normal wall motion. CONCLUSION: 1. Normal pharmacological stress test. 2. No stress induced defects were noted. 3. Normal LV function with no wall motion abnormalities. Job ID: [id number] DocumentID: [id number] Dictated Date: 08/01/2017 15:44:51 Indirect Fire Infantryman Date: 08/01/2017 16:47:11 Dictated By: ARLETTE BENSON MD
== END 2017-08-01 15:20 | disposition home or self-care (01) ==
LOC: EDUNIT# 15:45 → ER 15:47 → UNDOADMOB 17:47 → 4TH 17:47
PROVIDERS: ADMIT Family Medicine; ATTEND Family Medicine
DX: R07.9 Chest pain, unspecified (principal); M79.602 Pain in left arm; D86.9 Sarcoidosis, unspecified; F33.9 Major depressive disorder, recurrent, unspecified; G62.9 Polyneuropathy, unspecified; G47.00 Insomnia, unspecified; J32.0 Chronic maxillary sinusitis; J32.2 Chronic ethmoidal sinusitis; Z79.52 Long term (current) use of systemic steroids; Z79.899 Other long term (current) drug therapy
CPT/HCPCS: 36415; 70450; 71010; 78452; 80053; 80061; 82150; 82550; 82962; 83690; 83735; 83874; 84484; 85007; 85025; 85027; 85379; 85610; 85730; 93005; 93017; 93041; G0378

== ENCOUNTER → 2017-08-30 | Outpatient (CLI) | payer OTHER ==
[~2017-08-30] MED LIST changes: +ASPI-586 PO; +BACL10TA PO; +FOLI1TAB24 PO; +GABA800T2 PO; +LEVA0.6313 NEB; +LORC20TA PO; +METH25VI57 INJ; +PRED5TAB PO; +RT-ALBUINH IH
--- NOTE | 2017-08-30 10:42 | Diagnostic Imaging Report ---
Examination: DEXA scan. Indication: Technique: Bone mineral density estimated based on dual energy radiography over the lumbar spine and femoral necks, was performed. Findings: The lumbar spine T-score is -0.8. T score over the left femoral neck is 1.2 and on the right side is 0.7. Impression: Bone mineral density is at the lower limits of normal. Dictated by: Dictated on workstation # [id number]
--- NOTE | 2017-08-31 20:17 | Diagnostic Imaging Report ---
Bilateral screening mammogram 2D views with tomosynthesis The current study was also evaluated with a Computer Aided Detection (CAD) system. INDICATION: Screening. No current complaints stated on the questionnaire. COMPARISON: 08/15/2013. FINDINGS: The breasts are composed of scattered fibroglandular densities. There are vascular and benign-appearing calcifications. Allowing for technique and positional differences, no suspicious change is seen. IMPRESSION: No significant change. ACR BI-RADS Category 2: Benign findings. Result letter will be mailed to the patient. Note: At least 10% of breast cancer is not imaged by mammography. Dictated on workstation # [id number]
== END ==
LOC: RAD 09:46
PROVIDERS: ATTEND Family Medicine
DX: Z12.31 Encounter for screening mammogram for malignant neoplasm of breast (principal); M85.89 Other specified disorders of bone density and structure, multiple sites; Z79.52 Long term (current) use of systemic steroids
CPT/HCPCS: 77067; 77080

== ENCOUNTER 2017-12-28 10:43 | Outpatient (RCR) | payer OTHER ==
[~2017-12-28 10:43] MED LIST changes: +HYDR-34 PO; -HYDR-3816 PO
[2017-12-28 11:03] LABS: BASOPHILS % (AUTO) 1 % (0-10); EOSINOPHILS # (AUTO) 0.3 10^3/uL (0.0-0.3); EOSINOPHILS % (AUTO) 5 % (0-10); HEMATOCRIT 41 % (35-52); HEMOGLOBIN 13.8 G/DL (11.5-16.0); LYMPHOCYTES # (AUTO) 1.2 X 10^3 (1.0-4.0); LYMPHOCYTES % (AUTO) 23 % (12-44); MEAN CORPUSCULAR HEMOGLOBIN 30 PG (25-34); MEAN CORPUSCULAR HGB CONC 34 G/DL (32-36); MEAN CORPUSCULAR VOLUME 89 FL (80-99); MONOCYTES # (AUTO) 0.5 X 10^3 (0.0-1.0); MONOCYTES % (AUTO) 10 % (0-12); NEUTROPHILS # (AUTO) 3.2 X 10^3 (1.8-7.8); NEUTROPHILS % (AUTO) 61 % (42-75); PLATELET COUNT 272 10^3/uL (130-400); RED BLOOD COUNT 4.63 10^6/uL (4.35-5.85); RED CELL DISTRIBUTION WIDTH 14.4 % (10.0-14.5); WHITE BLOOD COUNT 5.2 10^3/uL (4.3-11.0)
[2017-12-28 11:26] LABS: ALANINE AMINOTRANSFERASE 83 U/L (0-55); ALBUMIN 3.9 GM/DL (3.2-4.5); ALKALINE PHOSPHATASE 321 U/L (40-136); BILIRUBIN,TOTAL 0.4 MG/DL (0.1-1.0); BUN/CREATININE RATIO 13; CALCIUM 10.1 MG/DL (8.5-10.1); CARBON DIOXIDE 24 MMOL/L (21-32); CHLORIDE 103 MMOL/L (98-107); CREATININE SERUM 0.88 MG/DL (0.60-1.30); GFR ESTIMATED > 60; GLUCOSE 94 MG/DL (70-105); POTASSIUM 3.7 MMOL/L (3.6-5.0); SODIUM 139 MMOL/L (135-145); TOTAL PROTEIN 8.1 GM/DL (6.4-8.2)
== END 2018-03-28 | disposition home or self-care (01) ==
LOC: LAB 10:43
PROVIDERS: ATTEND Internal Medicine
DX: D86.9 Sarcoidosis, unspecified (principal); M25.50 Pain in unspecified joint; R76.8 Other specified abnormal immunological findings in serum; R79.89 Other specified abnormal findings of blood chemistry
CPT/HCPCS: 36415; 80053; 85025

== ENCOUNTER → 2018-04-19 | Outpatient (CLI) | payer OTHER ==
--- NOTE | 2018-04-19 09:46 | Diagnostic Imaging Report ---
EXAM: ABDOMEN COMPLETE ULTRASOUND DATE: April 19, 2018. COMPARISON: CT chest abdomen and pelvis 01/30/2014. INDICATION: 47-year-old female, drug-induced liver injury. PROCEDURE: Two-dimensional ultrasound examination of the abdomen is performed. FINDINGS: Liver: The liver is of normal size and echotexture without parenchymal distorting solid or cystic masses. The main portal vein is patent. Bile ducts and gallbladder: The common bile duct measures 0.6 cm in diameter. Spleen: The spleen is normal. Right kidney: The right kidney is of normal size and contour with good corticomedullary differentiation. There are no shadowing calculi or cortical deforming solid or cystic masses. No hydronephrosis. The right kidney measures 11.1 cm x 4.9 cm x 5.7 cm. Left kidney: The left kidney is of normal size and contour with good corticomedullary differentiation. There are no shadowing calculi or cortical deforming solid or cystic masses. No hydronephrosis. The left kidney measures 11.8 cm x 5.8 cm x 5.5 cm. Pancreas: The visualized portions of the pancreas are unremarkable. Aorta: The aorta is of normal caliber. Inferior vena cava: The inferior vena cava is of normal caliber. IMPRESSION: 1. Unremarkable complete abdominal ultrasound. Dictated by: Dictated on workstation # [id number]
== END ==
LOC: RAD 07:49
PROVIDERS: ATTEND Internal Medicine
DX: K71.9 Toxic liver disease, unspecified (principal)
CPT/HCPCS: 76700

== ENCOUNTER → 2018-06-12 | Outpatient (CLI) | payer OTHER ==
[~2018-06-12] MED LIST changes: +RT-ALBUTEROL SULF 2.5 MG/3 ML PRE-MIX VIAL INH SCH; +RT-ALBUTEROL SULF 2.5 MG/3 ML PRE-MIX VIAL ONE
== END ==
LOC: RT 09:32
PROVIDERS: ATTEND Nurse Practitioner Family
DX: D86.9 Sarcoidosis, unspecified (principal)
CPT/HCPCS: 94060; 94726; 94729

== ENCOUNTER → 2018-08-19 | Outpatient (CLI) | payer OTHER ==
[~2018-08-19] MED LIST changes: -RT-ALBUTEROL SULF 2.5 MG/3 ML PRE-MIX VIAL INH SCH; -RT-ALBUTEROL SULF 2.5 MG/3 ML PRE-MIX VIAL ONE
--- NOTE | 2018-08-19 12:11 | Diagnostic Imaging Report ---
EXAMINATION: Left shoulder radiographs, three views. COMPARISON: None. HISTORY: 47-year-old female, left shoulder pain. FINDINGS: The humeral head is normally positioned relative to the glenoid. The acromioclavicular joint is normally aligned. There are no prominent acromioclavicular degenerative changes. The glenohumeral joint is unremarkable in appearance. There is no identified acute fracture. There is no radiographically apparent bone lesion. IMPRESSION: Unremarkable left shoulder radiographs. Dictated by: Dictated on workstation # [id number]
== END ==
LOC: RAD 11:21
PROVIDERS: ATTEND Nurse Practitioner Family
DX: M25.512 Pain in left shoulder (principal)
CPT/HCPCS: 73030

== ENCOUNTER → 2018-08-29 | Outpatient (CLI) | payer BC, OTHER ==
--- NOTE | 2018-08-29 14:21 | Diagnostic Imaging Report ---
PROCEDURE: MRI left upper extremity without contrast. TECHNIQUE: Multiplanar, multisequence non contrast-enhanced MRI of the left upper extremity was accomplished. INDICATION: Decreased range of motion of the left shoulder and left shoulder pain. COMPARISON: No prior studies are available for comparison. FINDINGS: The biceps tendon is in a normal location within the bicipital groove. Glenohumeral and acromioclavicular alignment are normal. The subscapularis tendon of the rotator cuff appears intact. The supraspinatus and infraspinatus tendons of the rotator cuff appear intact. There is a moderate amount of intermediate signal noted within the supraspinatus and infraspinatus tendons consistent with tendinosis. There is no tear or retraction. No fluid is identified within the subacromial subdeltoid bursa. IMPRESSION: Rotator cuff tendinosis. No rotator cuff tear or retraction is seen. Dictated by: Dictated on workstation # [id number]
== END ==
LOC: RAD 13:05
PROVIDERS: ATTEND Orthopaedic Surgery
DX: M62.89 Other specified disorders of muscle (principal)
CPT/HCPCS: 73221

== ENCOUNTER → 2019-07-09 | Outpatient (CLI) | payer BC ==
[~2019-07-09] MED LIST changes: +GABA800T10 PO; -GABA800T2 PO; -LEVA0.6313 NEB; +LEVA0.6334 NEB
--- NOTE | 2019-07-09 13:38 | Diagnostic Imaging Report ---
PROCEDURE: US Non-ob pelvis comp/trans. TECHNIQUE: Multiple realtime grayscale images were obtained of the pelvis in various projections endovaginally. Transabdominal imaging was also performed. INDICATION: Fibroid uterus. COMPARISON: No prior studies available for comparison. FINDINGS: The uterus measures 7.0 x 4.8 x 3.9 cm. The endometrium is 4 mm in thickness. No myometrial mass is identified. Ovaries cannot be visualized due to bowel gas. No adnexal mass or free fluid is detected. IMPRESSION: 1. No uterine fibroids are detected. 2. Nonvisualized ovaries. Dictated by: Dictated on workstation # [id number]
== END ==
LOC: RAD 11:50
PROVIDERS: ATTEND Obstetrics & Gynecology
DX: D25.9 Leiomyoma of uterus, unspecified (principal)
CPT/HCPCS: 76830; 76856

== ENCOUNTER → 2020-04-13 | Outpatient (CLI) | payer BC ==
[~2020-04-13] MED LIST changes: +ACHD5005 PO; -HYDR-3062 PO
--- NOTE | 2020-04-13 09:36 | Diagnostic Imaging Report ---
PROCEDURE: Ultrasound abdomen complete. TECHNIQUE: Multiple real-time grayscale and color Doppler images were obtained of the abdomen in various projections. INDICATION: Drug-induced liver injury. Patient with history of sarcoidosis. COMPARISON: Multiple priors, most recent abdominal ultrasound performed on 01/27/2014. FINDINGS: Liver: Normal in size and echotexture. No focal lesion is seen. Appropriate hepatopetal flow is demonstrated in the main portal vein. Gallbladder: The gallbladder surgically removed. There is no focal abnormality in the gallbladder fossa. The technologist reports a negative sonographic Lu's sign. Biliary Tree: There is no intrahepatic biliary ductal dilatation. The proximal common duct measures 0.8 cm in diameter. Pancreas: No abnormality in the visualized portions of the pancreas. Spleen: Normal in size and echotexture. Splenic length is 9.7 cm. Right kidney: Normal parenchymal echotexture and thickness. No hydronephrosis, stone or mass. Right renal length is 10.8 cm. Left kidney: Normal parenchymal echotexture and thickness. No hydronephrosis, stone or mass. Left renal length is 9.2 cm. Aorta: Normal caliber and contour. Inferior vena cava: Normal. Other: No free fluid. IMPRESSION: There is prominence of the proximal common duct, which is likely related to prior cholecystectomy. Recommend correlation with physical exam and laboratory values. Abdominal ultrasound is otherwise unremarkable. Dictated by: Dictated on workstation # [id number]
== END ==
LOC: RAD 08:05
PROVIDERS: ATTEND Nurse Practitioner Adult Health
DX: T50.901A Poisoning by unspecified drugs, medicaments and biological substances, accidental (unintentional), initial encounter (principal); K71.9 Toxic liver disease, unspecified; Z87.09 Personal history of other diseases of the respiratory system; Z90.49 Acquired absence of other specified parts of digestive tract
CPT/HCPCS: 76700

== ENCOUNTER → 2020-04-29 | Outpatient (CLI) | payer BC ==
[~2020-04-29] MED LIST changes: +GADOBUTROL 15 MMOL/15 ML (GADAVIST) VIAL IV ONE; +HOLD METFORMIN - RECEIVED CONTRAST 20 ML VIAL IV SCH; +IOHEXOL 350 MG/ML 100 ML (OMNIPAQUE 350) VIAL IV ONE; +NS 100 ML (IVPB) BAG IV ONE; +RT-ALBUTEROL SULF 2.5 MG/3 ML PRE-MIX VIAL INH ONE; +RT-ALBUTEROL SULF 2.5 MG/3 ML PRE-MIX VIAL ONE
--- NOTE | 2020-04-29 16:28 | Diagnostic Imaging Report ---
PROCEDURE: CT chest, abdomen, and pelvis with contrast. TECHNIQUE: Multiple contiguous axial images were obtained through the chest, abdomen, and pelvis after the administration of intravenous contrast. Auto Exposure Controls were utilized during the CT exam to meet ALARA standards for radiation dose reduction. INDICATION: Sarcoidosis COMPARISON: CT chest, abdomen and pelvis performed 01/30/2014 CHEST: Hilar and mediastinal lymphadenopathy showed mild interval progression. The aggregate left periaortic aicha mass measures a transverse thickness of 2.3 cm today, previously 2.1 cm. An aggregate of right paratracheal adenopathy posterior to the upper SVC measures 3.7 x 3.3 cm, previously measuring 3.4 x 2.7 cm measured along the same axis. Subcarinal adenopathy today measures 3.3 cm in AP thickness, previously 3.0 cm. Hilar adenopathy more difficult to precisely measure, the largest aggregate of right hilar nodes is today measuring 4.5 x 2.8 cm, unchanged. The largest right axillary lymph node is decreased in size 1.3 x 0.9 cm previously 1.9 x 1.3 cm. Left axillary adenopathy shows similar reduction and is very mild. No abnormal tissue along the internal mammary lymph node chains. There are progressive zones of predominantly linear perihilar scarring and fibrosis associated with some mild traction bronchiectasis having increased. No acute or consolidating pneumonia. No effusion or pneumothorax. ABDOMEN / PELVIS: Spleen size normal and nonfocal. The gallbladder is surgically absent. No pathological distention of the biliary ducts. The unobstructed kidneys appeared unremarkable and stable, the pancreas negative. There is no suspicious abdominal mesenteric or retroperitoneal aicha mass. The pelvic sidewalls unremarkable. The uterus, adnexa and urinary bladder unremarkable. Some mild bilateral inguinal lymphadenopathy unchanged from the comparison. A T9 superior endplate compression fracture without retropulsion has developed in the interim but is nonacute. IMPRESSION: CHEST: Mild progressive mediastinal adenopathy. Similar hilar adenopathy but progressive chronic interstitial lung changes. ABDOMEN / PELVIS: Unchanged inguinal lymphadenopathy. No hepatosplenic abnormality, ascites or acute abdominal pelvic solid or hollow visceral pathology Dictated by: Dictated on workstation # [id number]
--- NOTE | 2020-04-29 16:57 | Diagnostic Imaging Report ---
PROCEDURE: MRI lumbar spine with and without contrast. TECHNIQUE: Multiplanar, multisequence MRI of the lumbar spine was performed with and without contrast. INDICATION: Neurosarcoidosis, back and leg pain. FINDINGS: Lumbar vertebral statures are normal, the marrow signal intensity normal, and the alignment normal. With IV contrast, there is no abnormal or suspicious enhancement. Conus appears normal. The intradural contents appear normal. No epidural pathology. There is very mild desiccation and minimal bulging of L4-L5 and L5-S1 discs without resultant stenosis. No findings of fracture, infection, or neoplasm. IMPRESSION: Essentially unremarkable lumbar MRI. No evidence for mass or intrathecal pathology. Mild degenerative changes to the lower discs without focal herniation or resultant stenosis. Dictated by: Dictated on workstation # [id number]
== END ==
LOC: RT 10:05
PROVIDERS: ATTEND Nurse Practitioner Family
DX: G62.9 Polyneuropathy, unspecified (principal); D86.89 Sarcoidosis of other sites; M47.816 Spondylosis without myelopathy or radiculopathy, lumbar region; R59.0 Localized enlarged lymph nodes; J84.89 Other specified interstitial pulmonary diseases; Z90.49 Acquired absence of other specified parts of digestive tract
CPT/HCPCS: 71260; 72158; 74177; 94060; 94726; 94729

== ENCOUNTER → 2020-04-30 | Outpatient (CLI) | payer BC ==
[~2020-04-30] MED LIST changes: +GADOBUTROL 10 MMOL/10 ML (GADAVIST) VIAL IV ONE; -GADOBUTROL 15 MMOL/15 ML (GADAVIST) VIAL IV ONE; -HOLD METFORMIN - RECEIVED CONTRAST 20 ML VIAL IV SCH; -IOHEXOL 350 MG/ML 100 ML (OMNIPAQUE 350) VIAL IV ONE; -NS 100 ML (IVPB) BAG IV ONE; -RT-ALBUTEROL SULF 2.5 MG/3 ML PRE-MIX VIAL INH ONE; -RT-ALBUTEROL SULF 2.5 MG/3 ML PRE-MIX VIAL ONE
--- NOTE | 2020-04-30 10:44 | Diagnostic Imaging Report ---
CLINICAL INDICATION: Patient history of autoimmune disease, neurosarcoidosis. 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 Patient has numbness in her arms and legs. EXAM: MRI of the cervical spine performed without and with 10 cc of Gadavist IV gadolinium. Sequences include sagittal T2, sagittal T1, sagittal T2 fat-sat, axial T2, axial T1, sagittal T1 fat-sat post IV contrast, and axial T1 post IV contrast. COMPARISON: MRI of the cervical spine without and with contrast dated 07/08/2014. FINDINGS: There is no abnormal IV contrast enhancement. There is no acute cervical spine fracture or dislocation. There is slight progression of cervical spine degenerative disease with increased size of anterior spurs involving the C4-C6 levels. There is limited visualization of the posterior fossa and cervical cord with no gross abnormal cord signal. There is no significant paraspinal soft tissue abnormality. C1-C2: Again seen small spurs involving the atlantoodontoid interval. There is no significant central canal narrowing. C2-C3: Unremarkable. C3-C4: There is development of a small posterior disc bulge. There is progression of mild central canal narrowing. There is no significant neural foramen narrowing. C4-C5: There is progression of diffuse disc bulge with increased size of a small posterior disc extrusion/herniation. There is now moderate central canal stenosis which has progressed. There is mild left neural foramen narrowing which is slightly progressed. There is at least moderate right neural foramen narrowing which has progressed. C5-C6: There is progression of diffuse disc bulge with mild loss of disc space height and bilateral uncinate spurs and posterior spurs. There is moderate central canal stenosis which has slightly progressed. There is at least moderate left neural foramen narrowing which has progressed. There is mild right neural foramen narrowing again seen. C6-C7: There is slight progression of diffuse disc bulge. There is at least moderate left neural foramen narrowing and mild right neural foramen narrowing which has progressed. There is mild central canal narrowing which has progressed. C7-T1: There is no significant central spinal canal or neural foramen narrowing. IMPRESSION: 1: There is no abnormal IV contrast enhancement or cervical spine mass. 2: There is interval progression of cervical spine degenerative disc disease, as described above. Dictated by: Dictated on workstation # [id number]
== END ==
LOC: RAD 09:14
DX: Z51.81 Encounter for therapeutic drug level monitoring (principal); M48.02 Spinal stenosis, cervical region; M50.322 Other cervical disc degeneration at C5-C6 level; M47.812 Spondylosis without myelopathy or radiculopathy, cervical region; M50.21 Other cervical disc displacement, high cervical region; E66.9 Obesity, unspecified; M25.50 Pain in unspecified joint; E11.9 Type 2 diabetes mellitus without complications; F32.9 Major depressive disorder, single episode, unspecified; G62.9 Polyneuropathy, unspecified; D86.9 Sarcoidosis, unspecified; L53.9 Erythematous condition, unspecified; Z68.41 Body mass index [BMI] 40.0-44.9, adult; Z90.49 Acquired absence of other specified parts of digestive tract; Z98.890 Other specified postprocedural states
CPT/HCPCS: 72156

== ENCOUNTER → 2020-11-17 | Outpatient (CLI) | payer SELFPAY ==
[~2020-11-17] MED LIST changes: -GADOBUTROL 10 MMOL/10 ML (GADAVIST) VIAL IV ONE
--- NOTE | 2020-11-18 08:27 | NUR ---
Notified of positive COVID test
== END ==
LOC: LABNPT 08:44
PROVIDERS: ATTEND Family Medicine
DX: U07.1 COVID-19 (principal)
CPT/HCPCS: 87804; U0002; 87635

== ENCOUNTER → 2021-07-26 | Outpatient (CLI) | payer BC ==
[~2021-07-26] MED LIST changes: -FOLI1TAB24 PO; +FOLI1TAB33 PO
--- NOTE | 2021-07-26 13:16 | Diagnostic Imaging Report ---
Indication: Routine screening. Comparison is made with prior mammogram from 08/30/2017 08/15/2013. Scattered fibroglandular densities are identified bilaterally. The parenchyma pattern is stable. No mass or malignant-appearing microcalcifications are seen. Axillae are unremarkable. IMPRESSION: BI-RADS Category 1 No mammographic features suspicious for malignancy are identified. ACR BI-RADS Category 1: Negative. Result letter will be mailed to the patient. Note: At least 10% of breast cancer is not imaged by mammography. Dictated by: Dictated on workstation # [id number]
--- NOTE | 2021-07-26 17:02 | Diagnostic Imaging Report ---
INDICATION: Postmenopausal screening for osteoporosis. COMPARISON: 08/30/2017 FINDINGS: AP Spine L1-L4: [BMD (g/cm2): 1.010] [T-Score: -1.6] [Z-Score: -3.1] [BMD Previous: 1.109] [BMD % Change: -8.9] LT Hip Neck: [BMD (g/cm2): 1.092] [T-Score: 0.4] [Z-Score: -0.5] LT Hip Total: [BMD (g/cm2):1.137] [T-Score:1.0] [Z-Score: -0.3] [BMD Previous: 1.156] [BMD % Change: -1.6] RT Hip Neck: [BMD (g/cm2):1.013] [T-Score:-0.2] [Z-Score:-1.1] RT Hip Total: [BMD (g/cm2):1.075] [T-score:0.5] [Z-Score:-0.8] [BMD Previous:1.100] [BMD % Change:-2.3] *Indicates significant change from prior examination based on 95% confidence level. World Health Organization criteria for BMD interpretation classify patients as Normal (T-score at or above -1.0), Osteopenic (T-score between -1.0 and -2.5) or Osteoporotic (T-score at or below -2.5). LIMITATIONS AND MODIFICATION: None. FRACTURE RISK (FRAX SCORE): The ten year probability of (%): Major Osteoporotic Fracture: [NA] Hip Fracture: [NA] IMPRESSION: 1. Osteopenia (Low bone mass). 2. No significant change in bone mineral density since prior examination. 3. See below National Osteoporosis Foundation guidelines on when to potentially initiate pharmacologic therapy. Based on the National Osteoporosis Foundation Guidelines, pharmacologic treatment should be initiated in any of the following, unless clinical conditions suggest otherwise: * Any patient with prior fragility fracture of the hip or vertebrae. A spine fracture indicates 5X risk for subsequent spine fracture and 2X risk for subsequent hip fracture. * Osteoporosis (T-score <-2.5). * Postmenopausal women and men age 50 and older with low bone mass/osteopenia (T-score between -1.0 and -2.5) by DXA and 10-year major osteoporotic fracture greater than 20% or a 10-year probability of hip fracture greater than 3%. These fracture risks are supplied above in the FRAX score, if applicable. * Clinician judgement and/or patient preferences may indicate treatment for people with 10-year fracture probabilities above or below these levels. Dictated by: Dictated on workstation # [id number]
== END ==
LOC: RAD 10:45
PROVIDERS: ATTEND Nurse Practitioner Family
DX: Z13.820 Encounter for screening for osteoporosis (principal); Z12.31 Encounter for screening mammogram for malignant neoplasm of breast; M85.80 Other specified disorders of bone density and structure, unspecified site; Z78.0 Asymptomatic menopausal state
CPT/HCPCS: 77063; 77067; 77080

== ENCOUNTER → 2022-01-10 | Outpatient (CLI) | payer BC ==
--- NOTE | 2022-01-10 15:21 | Diagnostic Imaging Report ---
INDICATION: Shortness of breath, cough. COMPARISON: 07/30/2017. FINDINGS: Frontal and lateral views of the chest demonstrate a nodule in the right upper lobe. The left lung is clear. The heart is normal. There is no pneumothorax or effusion. The osseous structures are normal. IMPRESSION: New nodule in the right upper lobe. A CT chest is recommended. Dictated by: Dictated on workstation # [id number]
== END ==
LOC: RAD 13:14
PROVIDERS: ATTEND Family Medicine
DX: R05.9 Cough, unspecified (principal); R91.1 Solitary pulmonary nodule
CPT/HCPCS: 71046

== ENCOUNTER → 2022-01-13 | Outpatient (CLI) | payer BC ==
[~2022-01-13] MED LIST changes: +CATHETER FLUSH 10 ML SYR IV PRN; +HOLD METFORMIN - RECEIVED CONTRAST 20 ML VIAL IV SCH; +IOHEXOL 350 MG/ML 100 ML (OMNIPAQUE 350) VIAL IV ONE; +NS 100 ML (IVPB) BAG IV ONE
--- NOTE | 2022-01-13 19:21 | Diagnostic Imaging Report ---
PROCEDURE: CT chest with contrast only. TECHNIQUE: Multiple contiguous axial images were obtained through the chest after administration of intravenous contrast. Auto Exposure Controls were utilized during the CT exam to meet ALARA standards for radiation dose reduction. DATE: January 13, 2022. COMPARISON: Chest radiographs January 10, 2022. INDICATION: 51-year-old female, cough. FINDINGS: There are multiple prominent abnormally enlarged superior mediastinal, supraclavicular, AP window, paratracheal, bilateral hilar and subcarinal lymph nodes. There is an example right supraclavicular lymph node on axial image 4 which measures 7 mm in short axis. An example right peritracheal lymph node on axial image 36 measures 2.6 cm in short axis. An example AP window lymph node on axial image 39 measures 2.3 cm in short axis. An example left hilar lymph node on axial image 58 measures 1.4 cm in short axis. Subcarinal adenopathy on axial image 64 measures up to 2.9 cm in short axis. An example right hilar lymph node on axial image 63 measures 1.6 cm in short axis. These lymph nodes are grossly unchanged in size since April 29, 2020. The heart is not enlarged. There is no pericardial effusion. There is limited assessment for pulmonary embolus given timing of the contrast bolus. There is no obvious large central embolus. There is a right upper lobe pulmonary nodule on axial image 48 measuring 5 mm in size. There is a right upper lobe 4 mm nodule on axial image 55. There are predominantly linear opacities in the anterior aspect of the right middle lobe and also in the right lower lobe and left lower lobe. There are also mild linear opacities in the left upper lobe. This most likely reflect areas of atelectasis and/or scarring. There is no pneumothorax. There is no pleural effusion. There is mild left lower lobe bronchiectasis. The linear opacities are unchanged since April 29, 2020 and most likely reflect scarring. The spleen is not enlarged. There is no identified abnormally enlarged lymph node in the upper abdomen meeting CT size criteria for adenopathy. The right kidney is abnormally rotated. There is a 6 mm low-attenuation left renal lesion on axial image 128 and adjacent smaller lesion which are both too small to characterize. The gallbladder is absent. Additional evaluation of the imaged portions of the upper abdomen is unremarkable. There is no identified acute bony abnormality. There is a compression deformity of T9 which is unchanged since at least April 2020. IMPRESSION: CT chest: 1. Multiple prominent abnormally enlarged mediastinal, bilateral hilar, and supraclavicular lymph nodes. These are also present on April 29, 2020 and are very similar in size. Although these could relate to a benign process including sarcoidosis which would be supported by stability, this is not a specific imaging appearance. Workup for definitive diagnosis is needed if not already performed. 2. Multifocal predominantly linear opacities in the lungs most consistent with scarring and/or atelectasis with mild left lower lobe bronchiectasis. This is largely unchanged since April 29, 2020. 3. Subcentimeter right upper lobe pulmonary nodule is unchanged since April 29, 2020 consistent with benign etiology. 4. No evidence of an interval acute cardiopulmonary abnormality. Dictated by: Dictated on workstation # [id number]
== END ==
LOC: RAD 14:45
PROVIDERS: ATTEND Family Medicine
DX: J47.9 Bronchiectasis, uncomplicated (principal); R91.8 Other nonspecific abnormal finding of lung field; R91.1 Solitary pulmonary nodule
CPT/HCPCS: 71260